=== PATIENT | male | born 1945 | race Caucasian/White ===

== ENCOUNTER 2016-09-24 07:12 | Day surgery (SDC) | payer MEDICARE, BC ==
[2016-09-24] MEDS ORDERED: Lactated Ringers 1,000 ML IV SCH (07:15)
[2016-09-24] MEDS ORDERED: Sodium Chloride 0.9% 10 ML Syringe FLUSH PRN (07:15)
[2016-09-24] MEDS ORDERED: ceFAZolin 1 GM Vial IV ONE (09:00)
[2016-09-24] MEDS ORDERED: Lidocaine 2% 100 MG/5 ML Syringe IVPUSH ONE (09:00)
[2016-09-24] MEDS ORDERED: Propofol 200 MG/20 ML SDV IV ONE (09:00)
[2016-09-24] MEDS ORDERED: fentaNYL 100 MCG/2 ML SDV IV ONE (09:00)
[2016-09-24] MEDS ORDERED: Midazolam 1 MG/ML 2 ML SDV IV ONE (09:00)
[2016-09-24] MEDS ORDERED: Ondansetron 4 MG/2 ML SDV IVPUSH ONE (09:00)
[2016-09-24] MEDS ORDERED: Bupivacaine 0.5% 30 ML SDV ONE (09:01)
[2016-09-24] MEDS ORDERED: Lidocaine 1% with EPINEPHrine 1:100,000 20 ML MDV ONE (09:01)
[2016-09-24] MEDS ORDERED: Acetaminophen/HYDROcodone 325-5 MG Tab PO PRN (09:57)
--- NOTE | 2016-09-24 10:04 | PCM.OPNOTE ---
- General Post-Op/Procedure Note Date of Surgery/Procedure: 09/24/16 Operative Procedure(s): exicison of scalp biopsy site basal cell ca Findings: specimen with 5 mm margins Pre Op Diagnosis: basal cell ca of scalp Post-Op Diagnosis: Same Anesthesia Technique: Local (5 ml 1 % lido with epi/0.5% marcaine), MAC Primary Surgeon: Oz Perea Anesthesia Provider: Yu Ty Pathology: skin Complications: None Condition: Good Free Text/Narrative:: see dictation [id number]
[2016-09-24 11:21] VITALS: BP 149/73
--- NOTE | 2016-09-24 15:29 | OR ---
DATE OF OPERATION: 09/24/2016 SURGEON: Oz Perea MD PROCEDURE PERFORMED: Re-excision of scalp lesion with flap closure. PREOPERATIVE DIAGNOSIS: Basal cell carcinoma of the scalp. POSTOPERATIVE DIAGNOSIS: Basal cell carcinoma of the scalp. INDICATIONS FOR PROCEDURE: This is a 71-year-old white male, who has had previous excision of a scalp lesion. Margins were positive. The diagnosis was basal cell carcinoma. The patient was referred for re-excision of the biopsy site. DESCRIPTION OF OPERATION: After an excellent IV sedation was administered, the patient was prepped and draped in the usual sterile manner. The area after marking out a 5-mm border around the previous scar was infiltrated with a 1:1 mixture of 1% lidocaine and 0.5% bupivacaine. The specimen was excised and passed off the field after marking superior and inferior margins. It was readily apparent that we were not going to be able to get the scalp closed with simple closure. We marked out a modified rhomboid flap, and the flap was incised. It was very difficult to get the flap to rotate despite raising and loosening the skin circumferentially around this area. We were able to approximate the skin with interrupted 0 Ethibond, and jose m were then placed in between to get the scalp closed. The area was dressed with bacitracin, Kerlix, as well as well as stocking. He was taken to recovery room in good condition. Estimated blood loss was approximately 3 mL. /[id number] /BRIANL
== END 2016-09-24 11:15 | disposition home or self-care (01) ==
LOC: FB.SDS 07:12
PROVIDERS: ATTEND Surgery
DX: C44.41 Basal cell carcinoma of skin of scalp and neck (principal); I10 Essential (primary) hypertension; Z79.899 Other long term (current) drug therapy; Z96.652 Presence of left artificial knee joint; Z79.82 Long term (current) use of aspirin
CPT/HCPCS: 00300; 11623; 88305; J0690; J2250; J2405; J2704; J3010; J7120

== ENCOUNTER 2020-11-13 03:24 | Inpatient (IN) | payer MEDICARE, BC ==
[2020-11-13] MEDS ORDERED: HYDROmorphone 2 MG/ML SDV IM ONE (04:42)
[2020-11-13] MEDS ORDERED: oxyCODONE 5 MG Tab PO PRN (04:46)
--- NOTE | 2020-11-13 04:54 | EDM.PDOC ---
ED HPI GENERAL MEDICAL PROBLEM - General Chief Complaint: Back Pain or Injury Stated Complaint: BACK PAIN Time Seen by Provider: 11/13/20 04:49 Source of Information: Reports: Patient History Limitations: Reports: No Limitations - History of Present Illness INITIAL COMMENTS - FREE TEXT/NARRATIVE: Jorge Luis complains of severe back pain,inability to ambulate. His symptoms have been progressively getting worse since ..Saw Neurosurgery yesterday,waiting on a DEXA scan. Surgery has been entertained,but attended with various risks due to age,co-morbidities.Nothing is helping pain.ADLs have become difficult. Family unable to take care of him. 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 Lower back/buttocks Pain Score (Numeric/FACES): 10 - Related Data Allergies Allergy/AdvReac Type Severity Reaction Status Date / Time No Known Allergies Allergy Verified 11/13/20 03:33 Home Meds: Home Meds Allopurinol [Zyloprim] 300 mg PO ASDIRECTED PRN 09/23/16 [History] Carboxymethylcellulose Sodium [Refresh Tears] 1 drop EYEBOTH Q4HR PRN 09/23/16 [History] Hydrochlorothiazide/Lisinopril [Lisinopril-HCTZ 20-25 MG] 1 tab PO DAILY 09/23/16 [History] prednisoLONE acetate [Pred Forte 1% Ophth Susp] 1 drop EYEBOTH DAILY 09/23/16 [History] cycloSPORINE [Restasis] 1 ea EYEBOTH BID 09/24/16 [History] Aspirin 81 mg PO BID 11/13/20 [History] Brimonidine Tartrate/Timolol [Combigan Eye Drops] 1 drop EYEBOTH BID 11/13/20 [History] Metoprolol Tartrate 50 mg PO BID 11/13/20 [History] Naproxen [Naprosyn] 500 mg PO BID 11/13/20 [History] Netarsudil Mesylat/Latanoprost [Rocklatan 0.02%-0.005% Eye Drp] 1 drop EYERT DAILY 11/13/20 [History] Vit A/Vit C/Vit E/Zinc/Copper [Preservision] 1 each PO BID 11/13/20 [History] atorvaSTATin [Lipitor] 10 mg PO DAILY 11/13/20 [History] metFORMIN [Glucophage] 1,000 mg PO BIDMEALS 11/13/20 [History] Past Medical History HEENT History: Reports: Cataract, Other (See Below) Other HEENT History: BILATERAL CATARACT SURGERY ET ALSO BILATERAL CORNEAL TRANSPLANT. Cardiovascular History: Reports: High Cholesterol, Hypertension Respiratory History: Reports: None Gastrointestinal History: Reports: Hemorrhoids Other Genitourinary History: PHIMOSIS Musculoskeletal History: Reports: Arthritis, Back Pain, Chronic, Gout, Osteoarthritis Psychiatric History: Reports: None Endocrine/Metabolic History: Reports: Diabetes, Type II, Obesity/BMI 30+ Hematologic History: Reports: None Immunologic History: Reports: None Oncologic (Cancer) History: Reports: Basal Cell Carcinoma Other Dermatologic History: BASAL TRUONG CA OF HEAD LESION - Infectious Disease History Infectious Disease History: Reports: Chicken Pox, Measles, Mumps, Pertussis (Whooping Cough) - Past Surgical History Head Surgeries/Procedures: Reports: None HEENT Surgical History: Reports: Cataract Surgery, Eye Surgery Other HEENT Surgeries/Procedures: CORNEAL TRANSPLANT bilat, bilat cataract surgery GI Surgical History: Reports: Colonoscopy, Hernia Repair/Other, Other (See Below) Other GI Surgeries/Procedures: LEFT INGUINAL HERNIORRAPHY, hemorrhoid surgery, repair of anal fissure Male Surgical History: Reports: Circumcision Musculoskeletal Surgical History: Reports: Knee Replacement Other Musculoskeletal Surgeries/Procedures:: bilat knee replacements Dermatological Surgical History: Reports: Skin Biopsy Social & Family History - Family History Family Medical History: No Pertinent Family History - Tobacco Use Tobacco Use Status *Q: Never Tobacco User - Caffeine Use Caffeine Use: Reports: Coffee - Recreational Drug Use Recreational Drug Use: No ED ROS GENERAL - Review of Systems Review Of Systems: Comprehensive ROS is negative, except as noted in HPI. ED EXAM,LOWER BACK PAIN/INJURY - Physical Exam Exam: See Below Exam Limited By: No Limitations General Appearance: Alert, WD/WN, No Apparent Distress Extremities: Normal Inspection, Pedal Edema Neurological: Alert, Oriented x 3 Psychiatric: Normal Affect Course - Vital Signs Last Recorded V/S: Last Vital Signs Temp 97.9 F 11/13/20 03:25 Pulse 77 11/13/20 03:25 Resp 20 11/13/20 03:25 BP 196/90 H 11/13/20 03:25 Pulse Ox 100 11/13/20 03:25 - Orders/Labs/Meds Orders: Active Orders 24 hr Category Date Time Status Patient Status [ADT] Routine ADT 11/13/20 04:46 Active Oxygen Therapy [RC] PRN Care 11/13/20 04:46 Active Up With Assistance [RC] ASDIRECTED Care 11/13/20 04:46 Active VTE/DVT Education [RC] Per Unit Routine Care 11/13/20 04:46 Active Vital Signs [RC] Q4H Care 11/13/20 04:46 Active OT Evaluation and Treatment [CONS] Routine Cons 11/13/20 04:46 Active PT Evaluation and Treatment [CONS] Routine Cons 11/13/20 04:46 Active CORONAVIRUS COVID-19 [facility] [[facility]] Urgent Lab 11/13/20 04:48 Ordered Sodium Chloride 0.9% [Saline Flush] Med 11/13/20 04:46 Active 10 ml FLUSH ASDIRECTED PRN oxyCODONE Med 11/13/20 04:46 Active 5 mg PO Q4H PRN Peripheral IV Insertion Adult [OM.PC] Routine Oth 11/13/20 04:46 Ordered Resuscitation Status Routine Resus Stat 11/13/20 04:46 Ordered Medication Orders Oxycodone HCl (Oxycodone 5 Mg Tab) 5 mg PO Q4H PRN PRN Reason: Pain (moderate 4-6) Sodium Chloride (Sodium Chloride 0.9% 10 Ml Syringe) 10 ml FLUSH ASDIRECTED PRN PRN Reason: Keep Vein Open Labs: Laboratory Tests 11/13/20 11/13/20 11/13/20 Range/Units 04:05 04:05 04:05 WBC 7.1 (3.2-10.1) x10-3/uL RBC 3.96 (3.90-5.90) x10(6)uL Hgb 12.5 L (12.9-17.7) g/dL Hct 38.1 L (38.3-50.1) % MCV 96.1 (80.8-98.7) fL MCH 31.6 (27.0-33.3) pg MCHC 32.9 (28.7-35.3) g/dL RDW 14.3 (12.4-15.0) % Plt Count 219 (117-477) x10(3)uL MPV 6.6 L (6.7-11.0) fL Neut % (Auto) 73.2 H (40.3-71.8) % Lymph % (Auto) 12.9 L (15.8-45.3) % Falls % (Auto) 9.6 (5.5-15.2) % Eos % (Auto) 3.8 (0.1-6.8) % Baso % (Auto) 0.5 (0.3-3.8) % Neut # (Auto) 5.2 (1.7-6.9) x10-3/uL Lymph # (Auto) 0.9 (0.5-4.5) x10-3/uL Falls # (Auto) 0.7 (0.0-1.2) x10-3/uL Eos # (Auto) 0.3 (0.0-0.6) x10-3/uL Baso # (Auto) 0.0 (0.0-0.3) x10-3/uL Sodium 143 (135-145) mmol/L Potassium 4.0 (3.5-5.3) mmol/L Chloride 102 (100-110) mmol/L Carbon Dioxide 27 (21-32) mmol/L BUN 17 (7-18) mg/dL Creatinine 1.1 (0.70-1.30) mg/dL Est Cr Clr Drug Dosing 58.99 mL/min Estimated GFR (MDRD) > 60 (>60) BUN/Creatinine Ratio 15.5 (9-20) Glucose 167 H (80-116) mg/dL Calcium 8.4 L (8.6-10.2) mg/dL Total Bilirubin 0.6 (0.1-1.3) mg/dL AST 43 H (5-25) IU/L ALT 28 (12-36) U/L Alkaline Phosphatase 88 (56-112) IU/L NT-Pro-B Natriuret Pep 172 (<=450) pg/mL Total Protein 7.3 (6.0-8.0) g/dL Albumin 3.7 (3.2-4.6) g/dL Globulin 3.6 g/dL Albumin/Globulin Ratio 1.0 Meds: Medications Generic Name Dose Route Start Last Admin Trade Name Freq PRN Reason Stop Dose Admin Oxycodone HCl 5 mg 11/13/20 04:46 Oxycodone 5 Mg Tab PO Q4H PRN Pain (moderate 4-6) Sodium Chloride 10 ml 05/06/21 04:46 Sodium Chloride 0.9% 10 Ml Syringe FLUSH ASDIRECTED PRN Keep Vein Open Discontinued Medications Generic Name Dose Route Start Last Admin Trade Name Suzan PRN Reason Stop Dose Admin Hydromorphone HCl 1 mg 11/13/20 04:42 Hydromorphone 2 Mg/Ml Sdv IM 11/13/20 04:43 ONETIME ONE Departure - Departure Time of Disposition: 04:51 Disposition: Refer to Observation Condition: Good Clinical Impression: Chronic radicular low back pain, Sciatica - Discharge Information Sepsis Event Note (ED) - Evaluation Sepsis Screening Result: No Definite Risk - Focused Exam Vital Signs: Vital Signs Temp Pulse Resp BP Pulse Ox 11/13/20 03:25 97.9 F 77 20 196/90 H 100 - Problem List & Annotations (1) Chronic radicular low back pain SNOMED Code(s): 97453033, 58469532 Code(s): M54.16 - RADICULOPATHY, LUMBAR REGION; G89.29 - OTHER CHRONIC PAIN Status: Acute Current Visit: Yes (2) HTN (hypertension) SNOMED Code(s): 38770391 Code(s): I10 - ESSENTIAL (PRIMARY) HYPERTENSION Status: Acute Current Visit: Yes Qualifiers: Hypertension type: essential hypertension Qualified Code(s): I10 - Essential (primary) hypertension (3) Obesity SNOMED Code(s): 362284894, 677392079 Code(s): E66.9 - OBESITY, UNSPECIFIED Status: Acute Current Visit: Yes Qualifiers: Obesity type: due to excess calories (4) Ambulatory dysfunction SNOMED Code(s): 340539760 Code(s): R26.2 - DIFFICULTY IN WALKING, NOT ELSEWHERE CLASSIFIED Status: Acute Current Visit: Yes - Problem List Review Problem List Initiated/Reviewed/Updated: Yes - My Orders Last 24 Hours: My Active Orders 11/13/20 04:46 Patient Status [ADT] Routine Oxygen Therapy [RC] PRN Up With Assistance [RC] ASDIRECTED VTE/DVT Education [RC] Per Unit Routine Vital Signs [RC] Q4H OT Evaluation and Treatment [CONS] Routine PT Evaluation and Treatment [CONS] Routine Sodium Chloride 0.9% [Saline Flush] 10 ml FLUSH ASDIRECTED PRN oxyCODONE 5 mg PO Q4H PRN Peripheral IV Insertion Adult [OM.PC] Routine Resuscitation Status Routine 11/13/20 04:48 CORONAVIRUS COVID-19 [facility] [MOLE[facility]] Urgent - Assessment/Plan Last 24 Hours: My Active Orders 11/13/20 04:46 Patient Status [ADT] Routine Oxygen Therapy [RC] PRN Up With Assistance [RC] ASDIRECTED VTE/DVT Education [RC] Per Unit Routine Vital Signs [RC] Q4H OT Evaluation and Treatment [CONS] Routine PT Evaluation and Treatment [CONS] Routine Sodium Chloride 0.9% [Saline Flush] 10 ml FLUSH ASDIRECTED PRN oxyCODONE 5 mg PO Q4H PRN Peripheral IV Insertion Adult [OM.PC] Routine Resuscitation Status Routine 11/13/20 04:48 CORONAVIRUS COVID-19 [facility] [MOLEC] Urgent Plan: Admit for pain control,BP control( BP 196 systolic x 2). PT. Obtain DEXA.
[2020-11-13] MEDS ORDERED: Labetalol 20 MG/4 ML Syringe IVPUSH ONE (04:56)
[2020-11-13] MEDS: Sodium Chloride 0.9% 10 ML Syringe FLUSH PRN ×2 (05:25→18:31)
[2020-11-13] MEDS ORDERED: cefTRIAXone 2 GM in Sodium Chloride 0.9% 50 ML IV SCH (09:30)
[2020-11-13] MEDS ORDERED: cefTRIAXone 2 GM Vial IV SCH (09:45)
[2020-11-13] MEDS: cefTRIAXone 2 GM Vial IVPUSH SCH (10:07)
[2020-11-13] MEDS: Cyclobenzaprine 10 MG Tab PO SCH ×2 (10:07→21:33)
[2020-11-13] MEDS: Clindamycin in 0.9 % Sod Chlor 600 MG in Premix Bag 1 BAG IV SCH ×4 (10:08→17:52)
--- NOTE | 2020-11-13 12:41 | HP ---
ADMISSION DATE: 11/13/2020 REASON FOR ADMISSION: Complicated back pain. HISTORY OF PRESENT ILLNESS: Jorge Luis Hernandez is a 75-year-old male who was admitted through [facility]. Provider of record, Dr. Brice Belle. Presented with complicated severe and disabling back pain, off and on, couple months duration. Has had active intervention with physical therapy at [facility], more recently [facility]. Benefits inadequate. Had been seen by the Pain [facility] and undergone a single injection. Re-seen recently, day prior to admission. Neurosurgery outlined options, implications, concerns, risks and benefits and the enormity of intervention. Pain has been disabling, caregiving opportunity problematic. OTC medications noted. DAILY MEDICATIONS: Include: 1. Allopurinol 300 mg 1 p.o. daily, gout. 2. Baby aspirin 81 mg, CAD prevention. 3. Atorvastatin 10 mg 1 p.o. daily, hyperlipidemia. 4. Lisinopril-hydrochlorothiazide 20-25 one p.o. daily, blood pressure. 5. Metformin 1000 mg b.i.d., NIDDM. 6. Metoprolol 50 mg 1 p.o. b.i.d., hypertension and CAD. 7. Naproxen sodium 500 mg 1 p.o. b.i.d., back pain. 8. Prednisolone acetate Pred-Forte 1 drop both eyes, eye disease. 9. Multivitamin. ALLERGIES: No known allergies. PAST MEDICAL HISTORY: Significant for bilateral total knee arthroplasties, corneal transplants. Has had no major operative procedures. Treating illnesses include hyperlipidemia, diabetes mellitus, and hypertension. No other operative procedures, hospitalizations, unusual childhood diseases, major injuries, or fractures. SOCIAL HISTORY: Happily , lives in [facility]. in good health. Four children. 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 Nonsmoker. No alcohol. No illicit drug use. FAMILY HISTORY: Negative for early heart disease, diabetes mellitus, or inheritable cancer. REVIEW OF SYSTEMS: CONSTITUTIONAL: Feeling generally well except for back pain. EYES: Sees well, but moderate. EARS: Difficulty in crowds. OROPHARYNX: Intact dentition. GI: Regular predictable stools. : Good voiding pattern. Nocturia x1. No blood in urine. CV: Denies chest pain, palpitations, or syncope. RESPIRATORY: No chronic cough, wheeze, or congestion. ORTHOPEDIC: General joint complaints. SKIN: No lesions, eruptions, or moles. ENDOCRINE: Diabetes on board. PSYCHIATRIC: Mood stable. PHYSICAL EXAMINATION: VITAL SIGNS: 36.4, pulse is 74, 163/75, 16, 98%. GENERAL: Middle-aged gentleman, cooperative, conversant. Gives good history. HEENT: Funduscopic benign. Conjunctivae clear. Bright tympanic membranes. Decreased hearing. Clear nasal discharge. Mouth and oropharynx clear. Fair dentition. Tongue midline. NECK: Benign. Thyroid small. No carotid bruits. CHEST: On auscultation, clear in all lung cabrera. HEART: On auscultation, no ectopy or murmur. ABDOMEN: Benign. No surgical scars. No hepatosplenomegaly. : Declined. RECTAL: Declined. EXTREMITIES: Well perfused. TKA. Surgical scars intact. Has an evolving cellulitis of his right lower extremity, new finding. With open eschars. Otherwise, well perfused. LABORATORY STUDIES: White count 7100, hemoglobin 12.5, hematocrit 38.3, normal indices. Electrolytes satisfactory. Glucose 167. COVID negative. Radiographs, none recent. ASSESSMENT: 1. Complicated back pain, surgical consideration. 2. Cellulitis, right lower extremity. 3. Yst-tdbjhpo-ppvvntkxf diabetes mellitus. 4. Hypertension. 5. Diabetes mellitus. 6. Total knee arthroplasty x2. 7. Corneal transplants. PLAN: Medications, care, and treatment. PT, OT will be involved. Treatment of his cellulitis complementary. DEXA scan to be performed and care appropriate. /[id number] LUDWIG/RADHA
--- NOTE | 2020-11-13 13:22 | HP ---
ADMISSION DATE: 11/13/2020 ADDENDUM: Jorge Luis noted ulcer was present on his right upper buttocks area. Adaptic dressing was placed and will be observant for care. /[id number] LUDWIG/RADHA
[2020-11-13] MEDS ORDERED: metFORMIN 1,000 MG Tab PO SCH (18:00)
[2020-11-13] MEDS: Aspirin 81 MG Tab.Chew PO SCH (22:33)
[2020-11-13] MEDS: atorvaSTATin 10 MG Tab PO SCH (22:33)
[2020-11-13] MEDS ORDERED: metFORMIN 1,000 MG Tab PO ONE (23:00)
[2020-11-14] MEDS: Clindamycin in 0.9 % Sod Chlor 600 MG in Premix Bag 1 BAG IV SCH ×6 (02:15→17:24)
[2020-11-14] MEDS: Acetaminophen/oxyCODONE 325-5 MG Tab PO PRN ×2 (07:36→20:06)
--- NOTE | 2020-11-14 08:56 | PCM.PN ---
- General Info Date of Service: 11/14/20 Subjective Update: Jorge Luis still has pain on movement,lower back.Not able to ambulate. Redness and swelling of legs present still,no systemic symptoms. Functional Status: Reports: Pain Controlled - Review of Systems General: Reports: No Symptoms. Denies: Fever Pulmonary: Reports: No Symptoms Cardiovascular: Reports: No Symptoms - Patient Data Vitals - Most Recent: Last Vital Signs Temp 97.8 F 11/14/20 02:50 Pulse 78 11/14/20 02:50 Resp 20 11/14/20 02:50 BP 145/78 H 11/14/20 02:50 Pulse Ox 95 11/14/20 03:00 Weight - Most Recent: 119.38 kg Lab Results Last 24 Hours: Laboratory Results - last 24 hr 11/13/20 11/14/20 Range/Units 22:31 06:39 POC Glucose 141 H 121 H (80-116) mg/dL Med Orders - Current: Current Medications Allopurinol (Allopurinol 300 Mg Tab) 300 mg PO DAILY [facility] Aspirin (Aspirin 81 Mg Tab.Chew) 81 mg PO BID [facility] Last Admin: 11/13/20 22:33 Dose: Not Given Documented by: Atorvastatin Calcium (Atorvastatin 10 Mg Tab) 10 mg PO BEDTIME [facility] Last Admin: 11/13/20 22:33 Dose: Not Given Documented by: Ceftriaxone Sodium (Ceftriaxone 2 Gm Vial) 2 gm IVPUSH Q24H [facility] Stop: 11/19/20 09:46 Last Admin: 11/13/20 10:07 Dose: 2 gm Documented by: Cyclobenzaprine HCl (Cyclobenzaprine 10 Mg Tab) 10 mg PO BID [facility] Last Admin: 11/13/20 21:33 Dose: 10 mg Documented by: Clindamycin/Sodium Chloride (600 mg/ Premix) 50 mls @ 150 mls/hr IV Q8H [facility] Stop: 11/19/20 23:59 Last Admin: 11/14/20 02:15 Dose: 150 mls/hr Documented by: Metformin HCl (Metformin 1,000 Mg Tab) 1,000 mg PO BIDMEALS [facility] Metoprolol Tartrate (Metoprolol Tartrate 50 Mg Tab) 50 mg PO BID [facility] Non-Formulary Medication (Cyclosporine [Restasis]) 1 ea EYEBOTH BID [facility] (Netarsudil/Latanoprost) [ Rocklatan 0.02%-0. 005% Eye Drops *Ptom 1 drop EYERT BEDTIME [facility] Non-Formulary Medication (Prednisolone Acetate [Pred Forte 1% Ophth Susp]) 1 drop EYEBOTH BEDTIME [facility] Oxycodone/Acetaminophen (Acetaminophen/Oxycodone 325-5 Mg Tab) 2 tab PO Q6H PRN PRN Reason: BACK PAIN Last Admin: 11/14/20 07:36 Dose: 2 tab Documented by: Sodium Chloride (Sodium Chloride 0.9% 10 Ml Syringe) 10 ml FLUSH ASDIRECTED PRN PRN Reason: Keep Vein Open Last Admin: 11/13/20 18:31 Dose: 10 ml Documented by: Discontinued Medications Hydromorphone HCl (Hydromorphone 2 Mg/Ml Sdv) 1 mg IM ONETIME ONE Stop: 11/13/20 04:43 Last Admin: 11/13/20 04:55 Dose: 1 mg Documented by: Labetalol HCl (Labetalol 20 Mg/4 Ml Syringe) 10 mg IVPUSH ONETIME ONE; Protocol Stop: 11/13/20 04:57 Last Admin: 11/13/20 06:47 Dose: Not Given Documented by: Metformin HCl (Metformin 1,000 Mg Tab) 1,000 mg PO BIDMEALS SURES[facility] Last Admin: 11/14/20 00:11 Dose: Not Given Documented by: Metformin HCl (Metformin 1,000 Mg Tab) 1,000 mg PO NOW ONE Stop: 11/13/20 23:01 Last Admin: 11/13/20 22:59 Dose: 1,000 mg Documented by: Oxycodone HCl (Oxycodone 5 Mg Tab) 5 mg PO Q4H PRN PRN Reason: Pain (moderate 4-6) Last Admin: 11/13/20 06:29 Dose: 5 mg Documented by: - Exam General: Alert, Oriented Neck: Supple Back Exam: CVA Tenderness (R), Decreased Range of Motion, Muscle Spasm Extremities: Normal Inspection Skin: Warm, Rash, Other (Red right lower extremity) Neurological: No New Focal Deficit, Strength Equal Bilateral. No: Normal Gait Psy/Mental Status: Alert - Patient Data Lab Results Last 24 hrs: Laboratory Results - last 24 hr 11/13/20 11/14/20 Range/Units 22:31 06:39 POC Glucose 141 H 121 H (80-116) mg/dL Result Diagrams: 11/13/20 04:05 11/13/20 04:05 Sepsis Event Note - Evaluation Sepsis Screening Result: No Definite Risk - Focused Exam Vital Signs: Vital Signs Temp Pulse Resp BP Pulse Ox Pulse Ox 11/14/20 03:00 95 11/14/20 02:50 97.8 F 78 20 145/78 H 95 11/13/20 22:00 98.1 F 89 20 167/79 H 96 - Problem List & Annotations (1) Chronic radicular low back pain SNOMED Code(s): 08740477, 69887738 Code(s): M54.16 - RADICULOPATHY, LUMBAR REGION; G89.29 - OTHER CHRONIC PAIN Status: Acute Current Visit: Yes (2) HTN (hypertension) SNOMED Code(s): 95632530 Code(s): I10 - ESSENTIAL (PRIMARY) HYPERTENSION Status: Acute Current Visit: Yes Qualifiers: Hypertension type: essential hypertension Qualified Code(s): I10 - Essential (primary) hypertension (3) Obesity SNOMED Code(s): 146372186, 017160046 Code(s): E66.9 - OBESITY, UNSPECIFIED Status: Acute Current Visit: Yes Qualifiers: Obesity type: due to excess calories (4) Ambulatory dysfunction SNOMED Code(s): 111348191 Code(s): R26.2 - DIFFICULTY IN WALKING, NOT ELSEWHERE CLASSIFIED Status: Acute Current Visit: Yes (5) Cellulitis SNOMED Code(s): 853924937 Code(s): L03.90 - CELLULITIS, UNSPECIFIED Status: Acute Current Visit: Yes Qualifiers: Site of cellulitis: extremity Site of cellulitis of extremity: lower extremity Laterality: unspecified laterality Qualified Code(s): L03.119 - Cellulitis of unspecified part of limb - Problem List Review Problem List Initiated/Reviewed/Updated: Yes - My Orders Last 24 Hours: My Active Orders 11/15/20 05:11 BASIC METABOLIC PANEL,BMP [CHEM] AM CBC WITH AUTO DIFF [HEME] AM CRP [C-REACTIVE PROTEIN] [CHEM] AM - Plan Plan:: He will have his DEXA scheduled for next week. For now,treat cellulitis with parenteral abx,and Pain control,add muscle relaxant
[2020-11-14] MEDS: metFORMIN 1,000 MG Tab PO SCH ×2 (09:08→17:29)
[2020-11-14] MEDS: Allopurinol 300 MG Tab PO SCH (09:08)
[2020-11-14] MEDS: Metoprolol Tartrate 50 MG Tab PO SCH ×2 (09:09→20:05)
[2020-11-14] MEDS: Aspirin 81 MG Tab.Chew PO SCH ×2 (09:09→20:00)
[2020-11-14] MEDS: COMBIGAN EYE EYEBOTH SCH ×2 (09:10→20:09)
[2020-11-14] MEDS: Cyclobenzaprine 10 MG Tab PO SCH ×2 (09:10→20:05)
[2020-11-14] MEDS: cycloSPORINE Ophth Drops U/D Box of 30 EYEBOTH SCH ×2 (09:12→20:10)
[2020-11-14] MEDS: Sodium Chloride 0.9% 10 ML Syringe FLUSH PRN ×2 (09:54→17:26)
[2020-11-14] MEDS: cefTRIAXone 2 GM Vial IVPUSH SCH (09:54)
[2020-11-14] MEDS: atorvaSTATin 10 MG Tab PO SCH ×2 (20:05→20:14)
[2020-11-14] MEDS: Latanoprost 0.005% Ophth Soln 2.5 ML Bottle EYELF SCH (20:06)
[2020-11-14] MEDS: prednisoLONE Acetate 1% Ophth Susp 5 ML Bottle EYEBOTH SCH (20:07)
[2020-11-14] MEDS ORDERED: LUMIGAN 0.01% EYELF SCH (21:00)
[2020-11-14] MEDS ORDERED: EYE EYELF SCH (21:00)
[2020-11-15] MEDS: Clindamycin in 0.9 % Sod Chlor 600 MG in Premix Bag 1 BAG IV SCH ×6 (01:52→17:09)
[2020-11-15] MEDS: cycloSPORINE Ophth Drops U/D Box of 30 EYEBOTH SCH ×2 (08:26→20:15)
[2020-11-15] MEDS: Aspirin 81 MG Tab.Chew PO SCH ×2 (08:28→20:14)
[2020-11-15] MEDS: metFORMIN 1,000 MG Tab PO SCH ×2 (08:28→17:05)
[2020-11-15] MEDS: Allopurinol 300 MG Tab PO SCH (08:29)
[2020-11-15] MEDS: Cyclobenzaprine 10 MG Tab PO SCH ×2 (08:29→20:14)
[2020-11-15] MEDS: Metoprolol Tartrate 50 MG Tab PO SCH ×2 (08:29→20:14)
[2020-11-15] MEDS: COMBIGAN EYE EYEBOTH SCH ×2 (08:30→20:16)
--- NOTE | 2020-11-15 08:35 | PCM.PN ---
- General Info Date of Service: 11/15/20 Subjective Update: Jorge Luis still has pain on movement,lower back.Not able to ambulate. Redness and swelling of legs present still,improved,and with no systemic symptoms. Functional Status: Reports: Pain Controlled, Tolerating Diet - Review of Systems General: Reports: No Symptoms HEENT: Reports: No Symptoms Pulmonary: Reports: No Symptoms - Patient Data Vitals - Most Recent: Last Vital Signs Temp 98.4 F 11/15/20 01:48 Pulse 89 11/15/20 08:29 Resp 16 11/15/20 01:48 BP 157/84 H 11/15/20 08:29 Pulse Ox 94 L 11/15/20 01:48 Weight - Most Recent: 119.38 kg I&O - Last 24 Hours: Intake & Output 11/14/20 11/15/20 11/15/20 22:59 06:59 14:59 Intake Total 650 Output Total 175 Balance 475 Lab Results Last 24 Hours: Laboratory Results - last 24 hr 11/14/20 11/14/20 11/15/20 Range/Units 11:23 17:08 06:10 WBC 4.5 (3.2-10.1) x10-3/uL RBC 3.44 L (3.90-5.90) x10(6)uL Hgb 11.2 L (12.9-17.7) g/dL Hct 33.1 L (38.3-50.1) % MCV 96.4 (80.8-98.7) fL MCH 32.5 (27.0-33.3) pg MCHC 33.7 (28.7-35.3) g/dL RDW 14.2 (12.4-15.0) % Plt Count 192 (117-477) x10(3)uL MPV 7.2 (6.7-11.0) fL Neut % (Auto) 57.3 (40.3-71.8) % Lymph % (Auto) 23.3 (15.8-45.3) % Martin % (Auto) 11.8 (5.5-15.2) % Eos % (Auto) 6.7 (0.1-6.8) % Baso % (Auto) 0.9 (0.3-3.8) % Neut # (Auto) 2.6 (1.7-6.9) x10-3/uL Lymph # (Auto) 1.0 (0.5-4.5) x10-3/uL Martin # (Auto) 0.5 (0.0-1.2) x10-3/uL Eos # (Auto) 0.3 (0.0-0.6) x10-3/uL Baso # (Auto) 0.0 (0.0-0.3) x10-3/uL Sodium (135-145) mmol/L Potassium (3.5-5.3) mmol/L Chloride (100-110) mmol/L Carbon Dioxide (21-32) mmol/L BUN (7-18) mg/dL Creatinine (0.70-1.30) mg/dL Est Cr Clr Drug Dosing mL/min Estimated GFR (MDRD) (>60) BUN/Creatinine Ratio (9-20) Glucose (80-116) mg/dL POC Glucose 151 H 146 H (80-116) mg/dL Calcium (8.6-10.2) mg/dL C-Reactive Protein (0.5-0.9) mg/dL 11/15/20 11/15/20 Range/Units 06:10 06:10 WBC (3.2-10.1) x10-3/uL RBC (3.90-5.90) x10(6)uL Hgb (12.9-17.7) g/dL Hct (38.3-50.1) % MCV (80.8-98.7) fL MCH (27.0-33.3) pg MCHC (28.7-35.3) g/dL RDW (12.4-15.0) % Plt Count (117-477) x10(3)uL MPV (6.7-11.0) fL Neut % (Auto) (40.3-71.8) % Lymph % (Auto) (15.8-45.3) % Martin % (Auto) (5.5-15.2) % Eos % (Auto) (0.1-6.8) % Baso % (Auto) (0.3-3.8) % Neut # (Auto) (1.7-6.9) x10-3/uL Lymph # (Auto) (0.5-4.5) x10-3/uL Martin # (Auto) (0.0-1.2) x10-3/uL Eos # (Auto) (0.0-0.6) x10-3/uL Baso # (Auto) (0.0-0.3) x10-3/uL Sodium 146 H (135-145) mmol/L Potassium 4.0 (3.5-5.3) mmol/L Chloride 108 D (100-110) mmol/L Carbon Dioxide 29 (21-32) mmol/L BUN 14 (7-18) mg/dL Creatinine 1.0 (0.70-1.30) mg/dL Est Cr Clr Drug Dosing 64.89 mL/min Estimated GFR (MDRD) > 60 (>60) BUN/Creatinine Ratio 14.0 (9-20) Glucose 116 (80-116) mg/dL POC Glucose (80-116) mg/dL Calcium 7.9 L (8.6-10.2) mg/dL C-Reactive Protein 1.1 H (0.5-0.9) mg/dL Med Orders - Current: Current Medications Allopurinol (Allopurinol 300 Mg Tab) 300 mg PO DAILY [facility] Last Admin: 11/15/20 08:29 Dose: 300 mg Documented by: Aspirin (Aspirin 81 Mg Tab.Chew) 81 mg PO BID [facility] Last Admin: 11/15/20 08:28 Dose: 81 mg Documented by: Atorvastatin Calcium (Atorvastatin 10 Mg Tab) 10 mg PO BEDTIME [facility] Last Admin: 11/14/20 20:14 Dose: Not Given Documented by: Ceftriaxone Sodium (Ceftriaxone 2 Gm Vial) 2 gm IVPUSH Q24H [facility] Stop: 11/19/20 09:46 Last Admin: 11/14/20 09:54 Dose: 2 gm Documented by: Cyclobenzaprine HCl (Cyclobenzaprine 10 Mg Tab) 10 mg PO BID [facility] Last Admin: 11/15/20 08:29 Dose: 10 mg Documented by: Cyclosporine (Cyclosporine Ophth Drops U/D Box Of 30) 1 each EYEBOTH BID [facility] Last Admin: 11/15/20 08:26 Dose: 1 drop Documented by: Clindamycin/Sodium Chloride (600 mg/ Premix) 50 mls @ 150 mls/hr IV Q8H [facility] Stop: 11/19/20 23:59 Last Admin: 11/15/20 01:52 Dose: 150 mls/hr Documented by: Latanoprost (Latanoprost 0.005% Ophth Soln 2.5 Ml Bottle) 0 ml EYELF BEDTIME [facility] Last Admin: 11/14/20 20:06 Dose: 1 drop Documented by: Metformin HCl (Metformin 1,000 Mg Tab) 1,000 mg PO BIDMEALS [facility] Last Admin: 11/15/20 08:28 Dose: 1,000 mg Documented by: Metoprolol Tartrate (Metoprolol Tartrate 50 Mg Tab) 50 mg PO BID [facility] Last Admin: 11/15/20 08:29 Dose: 50 mg Documented by: (Netarsudil/Latanoprost) [ Rocklatan 0.02%-0. 005% Eye Drops *Ptom 1 drop EYERT BEDTIME [facility] Last Admin: 11/14/20 20:08 Dose: 1 drop Documented by: Combigan Eye Drops * (Ptom) 0 each EYEBOTH BID [facility] Last Admin: 11/15/20 08:30 Dose: 1 each Documented by: Oxycodone/Acetaminophen (Acetaminophen/Oxycodone 325-5 Mg Tab) 2 tab PO Q6H PRN PRN Reason: BACK PAIN Last Admin: 11/14/20 20:06 Dose: 2 tab Documented by: Prednisolone Acetate (Prednisolone Acetate 1% Ophth Susp 5 Ml Bottle) 0 ml EYEBOTH BEDTIME [facility] Last Admin: 11/14/20 20:07 Dose: 1 drop Documented by: Sodium Chloride (Sodium Chloride 0.9% 10 Ml Syringe) 10 ml FLUSH ASDIRECTED PRN PRN Reason: Keep Vein Open Last Admin: 11/14/20 17:26 Dose: 10 ml Documented by: Discontinued Medications Hydromorphone HCl (Hydromorphone 2 Mg/Ml Sdv) 1 mg IM ONETIME ONE Stop: 11/13/20 04:43 Last Admin: 11/13/20 04:55 Dose: 1 mg Documented by: Labetalol HCl (Labetalol 20 Mg/4 Ml Syringe) 10 mg IVPUSH ONETIME ONE; Protocol Stop: 11/13/20 04:57 Last Admin: 11/13/20 06:47 Dose: Not Given Documented by: Metformin HCl (Metformin 1,000 Mg Tab) 1,000 mg PO BIDMEALS [facility] Last Admin: 11/14/20 00:11 Dose: Not Given Documented by: Metformin HCl (Metformin 1,000 Mg Tab) 1,000 mg PO NOW ONE Stop: 11/13/20 23:01 Last Admin: 11/13/20 22:59 Dose: 1,000 mg Documented by: Oxycodone HCl (Oxycodone 5 Mg Tab) 5 mg PO Q4H PRN PRN Reason: Pain (moderate 4-6) Last Admin: 11/13/20 06:29 Dose: 5 mg Documented by: - Exam General: Alert, Oriented HEENT: Pupils Equal Neck: Supple Lungs: Clear to Auscultation Extremities: Pedal Edema, Increased Warmth, Redness Skin: Warm Neurological: Strength Equal Bilateral, Sensation Intact. No: Normal Gait Psy/Mental Status: Alert - Patient Data Lab Results Last 24 hrs: Laboratory Results - last 24 hr 11/14/20 11/14/20 11/15/20 Range/Units 11:23 17:08 06:10 WBC 4.5 (3.2-10.1) x10-3/uL RBC 3.44 L (3.90-5.90) x10(6)uL Hgb 11.2 L (12.9-17.7) g/dL Hct 33.1 L (38.3-50.1) % MCV 96.4 (80.8-98.7) fL MCH 32.5 (27.0-33.3) pg MCHC 33.7 (28.7-35.3) g/dL RDW 14.2 (12.4-15.0) % Plt Count 192 (117-477) x10(3)uL MPV 7.2 (6.7-11.0) fL Neut % (Auto) 57.3 (40.3-71.8) % Lymph % (Auto) 23.3 (15.8-45.3) % Martin % (Auto) 11.8 (5.5-15.2) % Eos % (Auto) 6.7 (0.1-6.8) % Baso % (Auto) 0.9 (0.3-3.8) % Neut # (Auto) 2.6 (1.7-6.9) x10-3/uL Lymph # (Auto) 1.0 (0.5-4.5) x10-3/uL Martin # (Auto) 0.5 (0.0-1.2) x10-3/uL Eos # (Auto) 0.3 (0.0-0.6) x10-3/uL Baso # (Auto) 0.0 (0.0-0.3) x10-3/uL Sodium (135-145) mmol/L Potassium (3.5-5.3) mmol/L Chloride (100-110) mmol/L Carbon Dioxide (21-32) mmol/L BUN (7-18) mg/dL Creatinine (0.70-1.30) mg/dL Est Cr Clr Drug Dosing mL/min Estimated GFR (MDRD) (>60) BUN/Creatinine Ratio (9-20) Glucose (80-116) mg/dL POC Glucose 151 H 146 H (80-116) mg/dL Calcium (8.6-10.2) mg/dL C-Reactive Protein (0.5-0.9) mg/dL 11/15/20 11/15/20 Range/Units 06:10 06:10 WBC (3.2-10.1) x10-3/uL RBC (3.90-5.90) x10(6)uL Hgb (12.9-17.7) g/dL Hct (38.3-50.1) % MCV (80.8-98.7) fL MCH (27.0-33.3) pg MCHC (28.7-35.3) g/dL RDW (12.4-15.0) % Plt Count (117-477) x10(3)uL MPV (6.7-11.0) fL Neut % (Auto) (40.3-71.8) % Lymph % (Auto) (15.8-45.3) % Martin % (Auto) (5.5-15.2) % Eos % (Auto) (0.1-6.8) % Baso % (Auto) (0.3-3.8) % Neut # (Auto) (1.7-6.9) x10-3/uL Lymph # (Auto) (0.5-4.5) x10-3/uL Martin # (Auto) (0.0-1.2) x10-3/uL Eos # (Auto) (0.0-0.6) x10-3/uL Baso # (Auto) (0.0-0.3) x10-3/uL Sodium 146 H (135-145) mmol/L Potassium 4.0 (3.5-5.3) mmol/L Chloride 108 D (100-110) mmol/L Carbon Dioxide 29 (21-32) mmol/L BUN 14 (7-18) mg/dL Creatinine 1.0 (0.70-1.30) mg/dL Est Cr Clr Drug Dosing 64.89 mL/min Estimated GFR (MDRD) > 60 (>60) BUN/Creatinine Ratio 14.0 (9-20) Glucose 116 (80-116) mg/dL POC Glucose (80-116) mg/dL Calcium 7.9 L (8.6-10.2) mg/dL C-Reactive Protein 1.1 H (0.5-0.9) mg/dL Result Diagrams: 11/15/20 06:10 11/15/20 06:10 Sepsis Event Note - Evaluation Sepsis Screening Result: No Definite Risk - Focused Exam Vital Signs: Vital Signs Temp Pulse Pulse Resp BP BP Pulse Ox 11/15/20 08:29 89 157/84 H 11/15/20 01:48 98.4 F 69 16 136/62 94 L - Problem List & Annotations (1) Chronic radicular low back pain SNOMED Code(s): 05319268, 46594796 Code(s): M54.16 - RADICULOPATHY, LUMBAR REGION; G89.29 - OTHER CHRONIC PAIN Status: Acute Current Visit: Yes (2) HTN (hypertension) SNOMED Code(s): 78994410 Code(s): I10 - ESSENTIAL (PRIMARY) HYPERTENSION Status: Acute Current Visit: Yes Qualifiers: Hypertension type: essential hypertension Qualified Code(s): I10 - Essential (primary) hypertension (3) Obesity SNOMED Code(s): 800610707, 984137625 Code(s): E66.9 - OBESITY, UNSPECIFIED Status: Acute Current Visit: Yes Qualifiers: Obesity type: due to excess calories (4) Ambulatory dysfunction SNOMED Code(s): 630105438 Code(s): R26.2 - DIFFICULTY IN WALKING, NOT ELSEWHERE CLASSIFIED Status: Acute Current Visit: Yes (5) Cellulitis SNOMED Code(s): 995001930 Code(s): L03.90 - CELLULITIS, UNSPECIFIED Status: Acute Current Visit: Yes Qualifiers: Site of cellulitis: extremity Site of cellulitis of extremity: lower extremity Laterality: unspecified laterality Qualified Code(s): L03.119 - Cellulitis of unspecified part of limb - Problem List Review Problem List Initiated/Reviewed/Updated: Yes - My Orders Last 24 Hours: My Active Orders 11/14/20 09:00 Non-Formulary Medication [NF Drug] 0 each EYEBOTH BID 11/14/20 21:00 Latanoprost [Xalatan 0.005% Ophth Soln] 0 ml EYELF BEDTIME - Plan Plan:: He will have his DEXA scheduled for next week. For now,treat cellulitis with parenteral abx,and Pain control,add muscle relaxant.Continue PT
[2020-11-15] MEDS: Acetaminophen/oxyCODONE 325-5 MG Tab PO PRN ×2 (08:43→17:05)
[2020-11-15] MEDS: cefTRIAXone 2 GM Vial IVPUSH SCH (09:48)
[2020-11-15] MEDS: Sodium Chloride 0.9% 10 ML Syringe FLUSH PRN ×3 (09:48→17:11)
[2020-11-15] MEDS: atorvaSTATin 10 MG Tab PO SCH (20:14)
[2020-11-15] MEDS: Latanoprost 0.005% Ophth Soln 2.5 ML Bottle EYELF SCH (20:15)
[2020-11-15] MEDS: prednisoLONE Acetate 1% Ophth Susp 5 ML Bottle EYEBOTH SCH (20:15)
[2020-11-16] MEDS: Clindamycin in 0.9 % Sod Chlor 600 MG in Premix Bag 1 BAG IV SCH ×2 (01:53)
[2020-11-16 07:27] VITALS: BP 149/62; PULSE 75
[2020-11-16] MEDS: metFORMIN 1,000 MG Tab PO SCH (07:27)
[2020-11-16] MEDS: Metoprolol Tartrate 50 MG Tab PO SCH (08:43)
[2020-11-16] MEDS: Aspirin 81 MG Tab.Chew PO SCH (08:43)
[2020-11-16] MEDS: Allopurinol 300 MG Tab PO SCH (08:43)
[2020-11-16] MEDS: Cyclobenzaprine 10 MG Tab PO SCH (08:43)
[2020-11-16] MEDS: cycloSPORINE Ophth Drops U/D Box of 30 EYEBOTH SCH (08:46)
[2020-11-16] MEDS: COMBIGAN EYE EYEBOTH SCH (08:47)
--- NOTE | 2020-11-16 09:17 | PCM.DCSUM1 ---
Discharge Summary - Hospital Course Free Text/Narrative:: Patient's condition has improved but he will be transferred to swing bed today with continued current therapy. Patient will go to [place] tomorrow for DEXA scan. Further treatment recommendations based on current treatment efficacy and results of DEXA scan. - Discharge Data Discharge Date: 11/16/20 Discharge Disposition: DC/Tfer W/I Hosp To Swing 61 Condition: Good - Referral to Home Health Primary Care Physician: Elmer Tolentino MD - Discharge Diagnosis/Problem(s) (1) Sciatica SNOMED Code(s): 97509704 ICD Code: M54.30 - SCIATICA, UNSPECIFIED SIDE Status: Acute (2) HTN (hypertension) SNOMED Code(s): 44242842 ICD Code: I10 - ESSENTIAL (PRIMARY) HYPERTENSION Status: Acute Qualifiers: Hypertension type: essential hypertension Qualified Code(s): I10 - Essential (primary) hypertension (3) Obesity SNOMED Code(s): 355908316, 840024942 ICD Code: E66.9 - OBESITY, UNSPECIFIED Status: Acute Qualifiers: Obesity type: due to excess calories (4) Ambulatory dysfunction SNOMED Code(s): 478005125 ICD Code: R26.2 - DIFFICULTY IN WALKING, NOT ELSEWHERE CLASSIFIED Status: Acute (5) Cellulitis SNOMED Code(s): 973548972 ICD Code: L03.90 - CELLULITIS, UNSPECIFIED Status: Acute Qualifiers: Site of cellulitis: extremity Site of cellulitis of extremity: lower extremity Laterality: unspecified laterality Qualified Code(s): L03.119 - Cellulitis of unspecified part of limb - Patient Summary/Data Consults: Consultations 11/13/20 04:46 OT Evaluation and Treatment [CONS] Routine Please Evaluate and Treat. OT Reason for Consult: ADL's This query below is only for informational purposes and is not editable. PT Evaluation and Treatment [CONS] Routine Please Evaluate and Treat. PT Reason for Consult: Ambulation This query below is only for informational purposes and is not editable. 11/13/20 09:22 Consult to Occupational Therapy [OT Evaluation and Treatment] [CONS] Routine Please Evaluate and Treat. OT Reason for Consult: ABACK PAIN WEAKNESS This query below is only for informational purposes and is not editable. Admission Diagnosis/Problem: Back pain Consult to Physical Therapy [PT Evaluation and Treatment] [CONS] Routine Please Evaluate and Treat. PT Reason for Consult: BACK PAIN This query below is only for informational purposes and is not editable. Admission Diagnosis/Problem: Back pain - Discharge Plan *PRESCRIPTION DRUG MONITORING PROGRAM REVIEWED*: Not Applicable *COPY OF PRESCRIPTION DRUG MONITORING REPORT IN PATIENT MARY: Not Applicable Home Medications: Home Meds Brimonidine Tartrate/Timolol [Combigan Eye Drops] 1 drop EYEBOTH BID 11/13/20 [History] Vit A/Vit C/Vit E/Zinc/Copper [Preservision] 1 each PO BID 11/13/20 [History] Acetaminophen/oxyCODONE [Percocet 325-5 MG] 2 tab PO Q6H PRN tablet 11/16/20 [Rx] Aspirin 81 mg PO BID tab.chew 11/16/20 [Rx] Clindamycin in 0.9 % Sod Chlor [Cleocin in NS 600 MG/50 ML] 600 mg IV Q8H bag 11/16/20 [Rx] Cyclobenzaprine [Flexeril] 10 mg PO BID 11/16/20 [History] Cyclobenzaprine [Flexeril] 10 mg PO BID tablet 11/16/20 [Rx] Latanoprost [Xalatan 0.005% Ophth Soln] 0 ml EYELF BEDTIME bottle 11/16/20 [Rx] Metoprolol Tartrate [Lopressor] 50 mg PO BID tablet 11/16/20 [Rx] Netarsudil Mesylat/Latanoprost [Rocklatan 0.02%-0.005% Eye Drp] 1 drop EYERT BEDTIME 11/16/20 [Rx] Non-Formulary Medication [NF Drug] 0 each EYEBOTH BID each 11/16/20 [Rx] Sodium Chloride 0.9% [Saline Flush] 10 ml FLUSH ASDIRECTED PRN syringe 11/16/20 [Rx] allopurinoL [Zyloprim] 300 mg PO DAILY tablet 11/16/20 [Rx] atorvaSTATin [Lipitor] 10 mg PO BEDTIME tablet 11/16/20 [Rx] cefTRIAXone [Rocephin] 2 gm IVPUSH Q24H vial 11/16/20 [Rx] cycloSPORINE [Restasis] 1 each EYEBOTH BID each 11/16/20 [Rx] metFORMIN [Glucophage] 1,000 mg PO BIDMEALS tablet 11/16/20 [Rx] prednisoLONE acetate [Pred Forte 1% Ophth Susp] 0 ml EYEBOTH BEDTIME bottle 11/16/20 [Rx] Forms: ED Department Discharge Referrals: Elmer Tolentino MD [Primary Care Provider] - - Discharge Summary/Plan Comment DC Time >30 min.: No - General Info Date of Service: 11/16/20 Subjective Update: Patient was sitting in wheelchair next to bed at the time of exam. He states that he is feeling better but still has significant back pain when he tries to stand and ambulate. He has no new complaints at this time. Functional Status: Reports: Pain Controlled, Tolerating Diet, Ambulating, Urinating - Review of Systems General: Reports: Weakness HEENT: Reports: No Symptoms Pulmonary: Reports: No Symptoms Cardiovascular: Reports: No Symptoms Gastrointestinal: Reports: No Symptoms Genitourinary: Reports: No Symptoms Musculoskeletal: Reports: Back Pain, Leg Pain Skin: Reports: Other (Cellulitis) Neurological: Reports: Difficulty Walking, Weakness Psychiatric: Reports: No Symptoms - Patient Data Vitals - Most Recent: Last Vital Signs Temp 37.4 C 11/16/20 07:26 Pulse 75 11/16/20 08:43 Resp 18 11/16/20 07:26 BP 149/62 H 11/16/20 08:43 Pulse Ox 98 11/16/20 07:26 Weight - Most Recent: 119.38 kg I&O - Last 24 hours: Intake & Output 11/15/20 11/16/20 11/16/20 22:59 06:59 14:59 Intake Total 400 Output Total 1300 Balance -900 Lab Results - Last 24 hrs: Laboratory Results - last 24 hr 11/15/20 11/16/20 Range/Units 15:41 06:59 POC Glucose 102 123 H (80-116) mg/dL Med Orders - Current: Current Medications Discontinued Medications Allopurinol (Allopurinol 300 Mg Tab) 300 mg PO DAILY [facility] Last Admin: 11/16/20 08:43 Dose: 300 mg Documented by: Aspirin (Aspirin 81 Mg Tab.Chew) 81 mg PO BID [facility] Last Admin: 11/16/20 08:43 Dose: 81 mg Documented by: Atorvastatin Calcium (Atorvastatin 10 Mg Tab) 10 mg PO BEDTIME [facility] Last Admin: 11/15/20 20:14 Dose: 10 mg Documented by: Ceftriaxone Sodium (Ceftriaxone 2 Gm Vial) 2 gm IVPUSH Q24H [facility] Stop: 11/19/20 09:46 Last Admin: 11/15/20 09:48 Dose: 2 gm Documented by: Cyclobenzaprine HCl (Cyclobenzaprine 10 Mg Tab) 10 mg PO BID [facility] Last Admin: 11/16/20 08:43 Dose: 10 mg Documented by: Cyclosporine (Cyclosporine Ophth Drops U/D Box Of 30) 1 each EYEBOTH BID [facility] Last Admin: 11/16/20 08:46 Dose: 1 drop Documented by: Hydromorphone HCl (Hydromorphone 2 Mg/Ml Sdv) 1 mg IM ONETIME ONE Stop: 11/13/20 04:43 Last Admin: 11/13/20 04:55 Dose: 1 mg Documented by: Clindamycin/Sodium Chloride (600 mg/ Premix) 50 mls @ 150 mls/hr IV Q8H [facility] Stop: 11/19/20 23:59 Last Admin: 11/16/20 01:53 Dose: 150 mls/hr Documented by: Labetalol HCl (Labetalol 20 Mg/4 Ml Syringe) 10 mg IVPUSH ONETIME ONE; Protocol Stop: 11/13/20 04:57 Last Admin: 11/13/20 06:47 Dose: Not Given Documented by: Latanoprost (Latanoprost 0.005% Ophth Soln 2.5 Ml Bottle) 0 ml EYELF BEDTIME [facility] Last Admin: 11/15/20 20:15 Dose: 1 drop Documented by: Metformin HCl (Metformin 1,000 Mg Tab) 1,000 mg PO BIDMEALS [facility] Last Admin: 11/14/20 00:11 Dose: Not Given Documented by: Metformin HCl (Metformin 1,000 Mg Tab) 1,000 mg PO NOW ONE Stop: 11/13/20 23:01 Last Admin: 11/13/20 22:59 Dose: 1,000 mg Documented by: Metformin HCl (Metformin 1,000 Mg Tab) 1,000 mg PO BIDMEALS [facility] Last Admin: 11/16/20 07:27 Dose: 1,000 mg Documented by: Metoprolol Tartrate (Metoprolol Tartrate 50 Mg Tab) 50 mg PO BID [facility] Last Admin: 11/16/20 08:43 Dose: 50 mg Documented by: (Netarsudil/Latanoprost) [ Rocklatan 0.02%-0. 005% Eye Drops *Ptom 1 drop EYERT BEDTIME [facility] Last Admin: 11/15/20 20:15 Dose: 1 drop Documented by: Combigan Eye Drops * (Ptom) 0 each EYEBOTH BID [facility] Last Admin: 11/16/20 08:47 Dose: 1 each Documented by: Oxycodone HCl (Oxycodone 5 Mg Tab) 5 mg PO Q4H PRN PRN Reason: Pain (moderate 4-6) Last Admin: 11/13/20 06:29 Dose: 5 mg Documented by: Oxycodone/Acetaminophen (Acetaminophen/Oxycodone 325-5 Mg Tab) 2 tab PO Q6H PRN PRN Reason: BACK PAIN Last Admin: 11/15/20 17:05 Dose: 2 tab Documented by: Prednisolone Acetate (Prednisolone Acetate 1% Ophth Susp 5 Ml Bottle) 0 ml EYEBOTH BEDTIME [facility] Last Admin: 11/15/20 20:15 Dose: 1 drop Documented by: Sodium Chloride (Sodium Chloride 0.9% 10 Ml Syringe) 10 ml FLUSH ASDIRECTED PRN PRN Reason: Keep Vein Open Last Admin: 11/15/20 17:11 Dose: 10 ml Documented by: - Exam Quality Assessment: Reports: Skin Breakdown General: Reports: Alert, Oriented, Cooperative, No Acute Distress HEENT: Reports: EOMI Lungs: Reports: Clear to Auscultation Cardiovascular: Reports: Regular Rate, Regular Rhythm Extremities: Pedal Edema, Leg Pain, Increased Warmth, Redness Skin: Reports: Warm, Dry, Other (Right lower extremity erythema) Wound/Incisions: Reports: Dressing Dry and Intact, No Drainage Neurological: Reports: No New Focal Deficit Psy/Mental Status: Reports: Alert, Normal Affect, Normal Mood
== END 2020-11-16 09:00 | disposition swing bed (61) | DRG 552 ==
LOC: FB.ED 03:24 → FB.MS 04:50 → OBSVTOIN 10:10
PROVIDERS: ADMIT Family Medicine; ATTEND Family Medicine
DX: M54.40 Lumbago with sciatica, unspecified side (principal); L03.115 Cellulitis of right lower limb; M54.16 Radiculopathy, lumbar region; I10 Essential (primary) hypertension; E66.9 Obesity, unspecified; R26.2 Difficulty in walking, not elsewhere classified; E11.9 Type 2 diabetes mellitus without complications; E78.00 Pure hypercholesterolemia, unspecified; Z20.822 Contact with and (suspected) exposure to COVID-19; G89.29 Other chronic pain; M10.9 Gout, unspecified; M19.90 Unspecified osteoarthritis, unspecified site; Z96.653 Presence of artificial knee joint, bilateral; L98.419 Non-pressure chronic ulcer of buttock with unspecified severity; Z94.7 Corneal transplant status; Z79.52 Long term (current) use of systemic steroids; Z79.899 Other long term (current) drug therapy; Z79.84 Long term (current) use of oral hypoglycemic drugs; Z79.82 Long term (current) use of aspirin; Z98.49 Cataract extraction status, unspecified eye; Z85.828 Personal history of other malignant neoplasm of skin; Z68.37 Body mass index [BMI] 37.0-37.9, adult
CPT/HCPCS: 36415; 80053; 83880; 85025; A9270 ×2; J0696; J1170; J3490; U0002; 80048; 82947; 86140; 94760; 96372; 97161-GP; 97165-GO; 97530-GP; 97535-GO; 97542-GO; 99284

== ENCOUNTER 2020-11-16 08:13 | Inpatient (IN) | payer MEDICARE, BC ==
--- NOTE | 2020-11-16 09:47 | PCM.HP.2 ---
H&P History of Present Illness - General Date of Service: 11/16/20 Admit Problem/Dx: Admission Diagnosis/Problem Admission Diagnosis/Problem Back pain of lumbar region with sciatica Source of Information: Patient, Old Records History Limitations: Reports: No Limitations - History of Present Illness Initial Comments - Free Text/Narative: Mr. Hernandez was admitted through the emergency department on 11/13/2020 due to severe lower back pain with radicular pain. He has been under the care of neurosurgery and has received pain injections. He was waiting for a scheduled DEXA exam to guide further therapy. He was treated as an inpatient with opioids and muscle relaxant. He was also found to have cellulitis of the right lower extremity and treated with clindamycin and ceftriaxone. His cellulitis is improving. He was also found to have a wound on his left buttocks. The wound was appropriately cleaned and dressed. Patient will be discharged from the inpatient and admitted to swing bed at this time. Patient will have DEXA scan tomorrow to guide further treatment. Continue occupational and physical therapy. - Related Data Allergies/Adverse Reactions: Allergies Allergy/AdvReac Type Severity Reaction Status Date / Time No Known Allergies Allergy Verified 11/13/20 03:33 Home Medications: Home Meds Brimonidine Tartrate/Timolol [Combigan Eye Drops] 1 drop EYEBOTH BID 11/13/20 [History] Vit A/Vit C/Vit E/Zinc/Copper [Preservision] 1 each PO BID 11/13/20 [History] Acetaminophen/oxyCODONE [Percocet 325-5 MG] 2 tab PO Q6H PRN tablet 11/16/20 [Rx] Aspirin 81 mg PO BID tab.chew 11/16/20 [Rx] Clindamycin in 0.9 % Sod Chlor [Cleocin in NS 600 MG/50 ML] 600 mg IV Q8H bag 11/16/20 [Rx] Cyclobenzaprine [Flexeril] 10 mg PO BID 11/16/20 [History] Cyclobenzaprine [Flexeril] 10 mg PO BID tablet 11/16/20 [Rx] Latanoprost [Xalatan 0.005% Ophth Soln] 0 ml EYELF BEDTIME bottle 11/16/20 [Rx] Metoprolol Tartrate [Lopressor] 50 mg PO BID tablet 11/16/20 [Rx] Netarsudil Mesylat/Latanoprost [Rocklatan 0.02%-0.005% Eye Drp] 1 drop EYERT BEDTIME 11/16/20 [Rx] Non-Formulary Medication [NF Drug] 0 each EYEBOTH BID each 11/16/20 [Rx] Sodium Chloride 0.9% [Saline Flush] 10 ml FLUSH ASDIRECTED PRN syringe 11/16/20 [Rx] allopurinoL [Zyloprim] 300 mg PO DAILY tablet 11/16/20 [Rx] atorvaSTATin [Lipitor] 10 mg PO BEDTIME tablet 11/16/20 [Rx] cefTRIAXone [Rocephin] 2 gm IVPUSH Q24H vial 11/16/20 [Rx] cycloSPORINE [Restasis] 1 each EYEBOTH BID each 11/16/20 [Rx] metFORMIN [Glucophage] 1,000 mg PO BIDMEALS tablet 11/16/20 [Rx] prednisoLONE acetate [Pred Forte 1% Ophth Susp] 0 ml EYEBOTH BEDTIME bottle 11/16/20 [Rx] Past Medical History HEENT History: Reports: Cataract, Other (See Below) Other HEENT History: BILATERAL CATARACT SURGERY ET ALSO BILATERAL CORNEAL TRANSPLANT. Cardiovascular History: Reports: High Cholesterol, Hypertension Respiratory History: Reports: None Gastrointestinal History: Reports: Hemorrhoids Other Genitourinary History: PHIMOSIS Musculoskeletal History: Reports: Arthritis, Back Pain, Chronic, Gout, Osteoarthritis Psychiatric History: Reports: None Endocrine/Metabolic History: Reports: Diabetes, Type II, Obesity/BMI 30+ Hematologic History: Reports: None Immunologic History: Reports: None Oncologic (Cancer) History: Reports: Basal Cell Carcinoma Other Dermatologic History: BASAL TRUONG CA OF HEAD LESION - Infectious Disease History Infectious Disease History: Reports: Chicken Pox, Measles, Mumps, Pertussis (Whooping Cough) - Past Surgical History Head Surgeries/Procedures: Reports: None HEENT Surgical History: Reports: Cataract Surgery, Eye Surgery Other HEENT Surgeries/Procedures: CORNEAL TRANSPLANT bilat, bilat cataract surgery GI Surgical History: Reports: Colonoscopy, Hernia Repair/Other, Other (See Below) Other GI Surgeries/Procedures: LEFT INGUINAL HERNIORRAPHY, hemorrhoid surgery, repair of anal fissure Male Surgical History: Reports: Circumcision Musculoskeletal Surgical History: Reports: Knee Replacement Other Musculoskeletal Surgeries/Procedures:: bilat knee replacements Dermatological Surgical History: Reports: Skin Biopsy Social & Family History - Family History Family Medical History: No Pertinent Family History HEENT: Reports: None Cardiac: Reports: [place], [place] Respiratory: Reports: None Musculoskeletal: Reports: Arthritis Neurological: Reports: Alzheimers Disease Endocrine/Metabolic: Reports: Diabetes, type II Oncologic: Reports: Pancreatic - Tobacco Use Tobacco Use Status *Q: Never Tobacco User - Caffeine Use Caffeine Use: Reports: Coffee - Recreational Drug Use Recreational Drug Use: No H&P Review of Systems - Review of Systems: Review Of Systems: See Below General: Reports: Weakness HEENT: Reports: No Symptoms Pulmonary: Reports: No Symptoms Cardiovascular: Reports: No Symptoms Gastrointestinal: Reports: No Symptoms Genitourinary: Reports: No Symptoms Musculoskeletal: Reports: Back Pain, Leg Pain, Foot Pain Skin: Reports: Erythema, Wound Psychiatric: Reports: No Symptoms Neurological: Reports: Numbness, Difficulty Walking, Weakness Immunologic: Reports: No Symptoms Exam - Exam Exam: See Below - Vital Signs Weight: 113.398 kg - Exam Quality Assessment: Skin Breakdown General: Alert, Oriented, Cooperative HEENT: EOMI Lungs: Clear to Auscultation Cardiovascular: Regular Rate, Regular Rhythm Extremities: Pedal Edema, Leg Pain, Increased Warmth, Redness Peripheral Pulses: 2+: Radial (L), Radial (R) Skin: Warm, Dry Neurological: Sensation Intact, Abnormal Gait Neuro Extensive - Mental Status: Alert, Oriented x3, Normal Mood/Affect Psychiatric: Alert, Normal Affect, Normal Mood Sepsis Event Note - Evaluation Sepsis Screening Result: No Definite Risk - Problem List (1) Hyperuricemia SNOMED Code(s): 67087378 ICD Code: E79.0 - HYPERURICEMIA W/O SIGNS OF INFLAM ARTHRIT AND TOPHACEOUS DIS Status: Chronic Current Visit: Yes (2) Cornea transplant recipient SNOMED Code(s): 153953452 ICD Code: Z94.7 - CORNEAL TRANSPLANT STATUS Status: Chronic Current Visit: Yes (3) Ambulatory dysfunction SNOMED Code(s): 920881995 ICD Code: R26.2 - DIFFICULTY IN WALKING, NOT ELSEWHERE CLASSIFIED Status: Acute Current Visit: No (4) Cellulitis SNOMED Code(s): 744540397 ICD Code: L03.90 - CELLULITIS, UNSPECIFIED Status: Acute Current Visit: No Qualifiers: Site of cellulitis: extremity Site of cellulitis of extremity: lower extremity Laterality: unspecified laterality Qualified Code(s): L03.119 - Cellulitis of unspecified part of limb (5) Chronic radicular low back pain SNOMED Code(s): 85187175, 70782017 ICD Code: M54.16 - RADICULOPATHY, LUMBAR REGION; G89.29 - OTHER CHRONIC PAIN Status: Chronic Current Visit: No (6) HTN (hypertension) SNOMED Code(s): 68012451 ICD Code: I10 - ESSENTIAL (PRIMARY) HYPERTENSION Status: Chronic Current Visit: No Qualifiers: Hypertension type: essential hypertension Qualified Code(s): I10 - Essential (primary) hypertension (7) Obesity SNOMED Code(s): 134456448, 365467744 ICD Code: E66.9 - OBESITY, UNSPECIFIED Status: Chronic Current Visit: No Qualifiers: Obesity type: due to excess calories (8) Sciatica SNOMED Code(s): 69616655 ICD Code: M54.30 - SCIATICA, UNSPECIFIED SIDE Status: Acute Current Visit: No Problem List Initiated/Reviewed/Updated: Yes Orders Last 24hrs: Active Orders 24 hr Category Date Time Status Patient Status [ADT] Routine ADT 11/16/20 09:00 Ordered Antiembolic Devices [RC] .Routine Care 11/16/20 09:25 Ordered Pulse Oximetry [RC] PRN Care 11/16/20 09:23 Ordered VTE/DVT Education [RC] Click to Edit Care 11/16/20 09:25 Ordered Vital Signs [RC] Q8HR Care 11/16/20 09:23 Ordered OT Evaluation and Treatment [CONS] Routine Cons 11/16/20 09:39 Ordered PT Evaluation and Treatment [CONS] Routine Cons 11/16/20 09:39 Ordered Regular Diet [DIET] Diet 11/16/20 Lunch Ordered Acetaminophen/oxyCODONE [Percocet 325-5 MG] Med 11/16/20 09:28 Ordered 2 tab PO Q6H PRN Aspirin Med 11/16/20 21:00 Ordered 81 mg PO BID Brimonidine Tartrate/Timolol [Combigan 0.2%-0.5% Eye Med 11/16/20 21:00 Ordered Drops] 1 drop EYEBOTH BID Clindamycin in 0.9 % Sod Chlor [Cleocin in NS 600 MG/50 Med 11/16/20 10:00 Ordered ML] 600 mg IV Q8H Cyclobenzaprine [Flexeril] Med 11/16/20 21:00 Ordered 10 mg PO BID Metoprolol Tartrate [Lopressor] Med 11/16/20 21:00 Ordered 50 mg PO BID Netarsudil Mesylat/Latanoprost [Rocklatan 0.02%-0.005% Med 11/16/20 21:00 Ordered Eye Drp] 1 drop EYERT BEDTIME Sodium Chloride 0.9% [Saline Flush] Med 11/16/20 09:28 Ordered 10 ml FLUSH ASDIRECTED PRN allopurinoL [Zyloprim] Med 11/17/20 09:00 Ordered 300 mg PO DAILY atorvaSTATin [Lipitor] Med 11/16/20 21:00 Ordered 10 mg PO BEDTIME cefTRIAXone [Rocephin] Med 11/16/20 09:30 Ordered 2 gm IVPUSH Q24H cycloSPORINE [Restasis] Med 11/16/20 21:00 Ordered 1 each EYEBOTH BID metFORMIN [Glucophage] Med 11/16/20 18:00 Ordered 1,000 mg PO BIDMEALS prednisoLONE acetate [Pred Forte 1% Ophth Susp] Med 11/16/20 21:00 Ordered 1 ml EYEBOTH BEDTIME DVT/VTE Prophylaxis Reflex [OM.PC] Per Unit Routine Oth 11/16/20 09:23 Ordered Resuscitation Status Routine Resus Stat 11/16/20 09:23 Ordered Medication Orders Allopurinol (Allopurinol 300 Mg Tab) 300 mg PO DAILY [facility] Aspirin (Aspirin 81 Mg Tab.Chew) 81 mg PO BID [facility] Atorvastatin Calcium (Atorvastatin 10 Mg Tab) 10 mg PO BEDTIME [facility] Ceftriaxone Sodium (Ceftriaxone 2 Gm Vial) 2 gm IVPUSH Q24H [facility] Clindamycin/Sodium Chloride (Clindamycin In 0.9 % Nacl 600 Mg/50 Ml Premix Bag) 600 mg IV Q8H [facility] Cyclobenzaprine HCl (Cyclobenzaprine 10 Mg Tab) 10 mg PO BID [facility] Cyclosporine (Cyclosporine Ophth Drops U/D Box Of 30) 1 each EYEBOTH BID [facility] Metformin HCl (Metformin 1,000 Mg Tab) 1,000 mg PO BIDMEALS [facility] Metoprolol Tartrate (Metoprolol Tartrate 50 Mg Tab) 50 mg PO BID [facility] Non-Formulary Medication (Brimonidine Tartrate/Timolol [Combigan 0.2%-0.5% Eye Drops]) 1 drop EYEBOTH BID [facility] Non-Formulary Medication (Netarsudil Mesylat/Latanoprost [Rocklatan 0.02%-0.005% Eye Drp]) 1 drop EYERT BEDTIME [facility] Oxycodone/Acetaminophen (Acetaminophen/Oxycodone 325-5 Mg Tab) 2 tab PO Q6H PRN PRN Reason: BACK PAIN Prednisolone Acetate (Prednisolone Acetate 1% Ophth Susp 5 Ml Bottle) 1 ml EYEBOTH BEDTIME [facility] Sodium Chloride (Sodium Chloride 0.9% 10 Ml Syringe) 10 ml FLUSH ASDIRECTED PRN PRN Reason: Keep Vein Open Assessment/Plan Comment:: Admit to swing bed. Continue occupational physical therapy. Continue ceftriaxone and clindamycin for right lower extremity cellulitis. Continue wound care. Patient will likely go to [place] tomorrow for DEXA scan which will help to guide further treatment. Start enoxaparin, 40 mg subcu daily for DVT prophylaxis
[2020-11-16] MEDS ORDERED: CLINDAMYCIN IV SCH (10:00)
[2020-11-16] MEDS ORDERED: NACL IV SCH (10:00)
[2020-11-16] MEDS: cefTRIAXone 2 GM Vial IVPUSH SCH (10:32)
[2020-11-16] MEDS: Clindamycin in 0.9 % Sod Chlor 600 MG/50 ML BAG IV SCH ×2 (10:40→17:16)
[2020-11-16] MEDS: Acetaminophen/oxyCODONE 325-5 MG Tab PO PRN (16:05)
[2020-11-16] MEDS: metFORMIN 1,000 MG Tab PO SCH (17:18)
[2020-11-16] MEDS: Metoprolol Tartrate 50 MG Tab PO SCH (20:00)
[2020-11-16] MEDS: Cyclobenzaprine 10 MG Tab PO SCH (20:00)
[2020-11-16] MEDS: atorvaSTATin 10 MG Tab PO SCH (20:00)
[2020-11-16] MEDS: Aspirin 81 MG Tab.Chew PO SCH (20:00)
[2020-11-16] MEDS: prednisoLONE Acetate 1% Ophth Susp 5 ML Bottle EYEBOTH SCH (20:02)
[2020-11-16] MEDS: ROCKLATAN EYERT SCH (20:03)
[2020-11-16] MEDS: EYE EYERT SCH (20:03)
[2020-11-16] MEDS: cycloSPORINE Ophth Drops U/D Box of 30 EYEBOTH SCH (20:03)
[2020-11-17] MEDS: Clindamycin in 0.9 % Sod Chlor 600 MG/50 ML BAG IV SCH ×3 (02:51→18:16)
[2020-11-17] MEDS: Acetaminophen/oxyCODONE 325-5 MG Tab PO PRN (06:19)
[2020-11-17] MEDS: metFORMIN 1,000 MG Tab PO SCH ×2 (07:42→18:25)
[2020-11-17] MEDS: Aspirin 81 MG Tab.Chew PO SCH ×3 (07:43→20:17)
[2020-11-17] MEDS: Cyclobenzaprine 10 MG Tab PO SCH ×3 (07:44→20:17)
[2020-11-17] MEDS: Metoprolol Tartrate 50 MG Tab PO SCH ×3 (07:44→20:19)
[2020-11-17] MEDS: Allopurinol 300 MG Tab PO SCH ×2 (07:45→11:19)
[2020-11-17] MEDS: cycloSPORINE Ophth Drops U/D Box of 30 EYEBOTH SCH ×3 (07:48→20:18)
[2020-11-17] MEDS: cefTRIAXone 2 GM Vial IVPUSH SCH ×2 (07:51→11:09)
[2020-11-17] MEDS: Sodium Chloride 0.9% 10 ML Syringe FLUSH PRN ×2 (11:18→11:48)
[2020-11-17] MEDS: atorvaSTATin 10 MG Tab PO SCH (20:17)
[2020-11-17] MEDS: EYE EYERT SCH (20:19)
[2020-11-17] MEDS: ROCKLATAN EYERT SCH (20:19)
[2020-11-17] MEDS: prednisoLONE Acetate 1% Ophth Susp 5 ML Bottle EYEBOTH SCH (20:19)
[2020-11-18] MEDS: Clindamycin in 0.9 % Sod Chlor 600 MG/50 ML BAG IV SCH ×3 (01:37→18:25)
[2020-11-18] MEDS: metFORMIN 1,000 MG Tab PO SCH ×2 (09:19→18:25)
[2020-11-18] MEDS: Cyclobenzaprine 10 MG Tab PO SCH ×2 (09:20→21:17)
[2020-11-18] MEDS: Aspirin 81 MG Tab.Chew PO SCH ×2 (09:20→21:17)
[2020-11-18] MEDS: Metoprolol Tartrate 50 MG Tab PO SCH ×2 (09:20→21:16)
[2020-11-18] MEDS: cefTRIAXone 2 GM Vial IVPUSH SCH (09:21)
[2020-11-18] MEDS: Allopurinol 300 MG Tab PO SCH (09:21)
[2020-11-18] MEDS: cycloSPORINE Ophth Drops U/D Box of 30 EYEBOTH SCH ×2 (09:22→21:13)
[2020-11-18] MEDS: Acetaminophen/oxyCODONE 325-5 MG Tab PO PRN ×2 (09:29→16:37)
[2020-11-18] MEDS: Sodium Chloride 0.9% 10 ML Syringe FLUSH PRN ×2 (16:38→18:26)
[2020-11-18] MEDS: ROCKLATAN EYERT SCH (21:12)
[2020-11-18] MEDS: EYE EYERT SCH (21:12)
[2020-11-18] MEDS: prednisoLONE Acetate 1% Ophth Susp 5 ML Bottle EYEBOTH SCH (21:14)
[2020-11-18] MEDS: atorvaSTATin 10 MG Tab PO SCH (21:16)
[2020-11-19] MEDS: Clindamycin in 0.9 % Sod Chlor 600 MG/50 ML BAG IV SCH ×3 (01:56→17:34)
[2020-11-19] MEDS: Sodium Chloride 0.9% 10 ML Syringe FLUSH PRN ×2 (02:27→09:18)
[2020-11-19] MEDS: Aspirin 81 MG Tab.Chew PO SCH ×2 (08:22→20:56)
[2020-11-19] MEDS: Allopurinol 300 MG Tab PO SCH (08:22)
[2020-11-19] MEDS: Metoprolol Tartrate 50 MG Tab PO SCH ×2 (08:23→20:55)
[2020-11-19] MEDS: metFORMIN 1,000 MG Tab PO SCH ×2 (08:23→17:36)
[2020-11-19] MEDS: Cyclobenzaprine 10 MG Tab PO SCH ×2 (08:24→20:55)
[2020-11-19] MEDS: cycloSPORINE Ophth Drops U/D Box of 30 EYEBOTH SCH ×2 (08:25→20:51)
[2020-11-19] MEDS: Acetaminophen/oxyCODONE 325-5 MG Tab PO PRN ×2 (09:11→20:49)
[2020-11-19] MEDS ORDERED: Clindamycin in 0.9 % Sod Chlor 600 MG/50 ML BAG IV SCH (10:00)
[2020-11-19] MEDS: prednisoLONE Acetate 1% Ophth Susp 5 ML Bottle EYEBOTH SCH (20:52)
[2020-11-19] MEDS: ROCKLATAN EYERT SCH (20:53)
[2020-11-19] MEDS: EYE EYERT SCH (20:53)
[2020-11-19] MEDS: atorvaSTATin 10 MG Tab PO SCH (20:56)
[2020-11-20] MEDS: Clindamycin in 0.9 % Sod Chlor 600 MG/50 ML BAG IV SCH ×3 (01:35→17:03)
[2020-11-20] MEDS: Sodium Chloride 0.9% 10 ML Syringe FLUSH PRN ×3 (02:07→17:03)
[2020-11-20] MEDS: Aspirin 81 MG Tab.Chew PO SCH ×2 (08:42→20:54)
[2020-11-20] MEDS: metFORMIN 1,000 MG Tab PO SCH ×2 (08:42→17:04)
[2020-11-20] MEDS: Cyclobenzaprine 10 MG Tab PO SCH ×2 (08:42→20:54)
[2020-11-20] MEDS: cycloSPORINE Ophth Drops U/D Box of 30 EYEBOTH SCH ×2 (08:43→20:56)
[2020-11-20] MEDS: Metoprolol Tartrate 50 MG Tab PO SCH ×2 (08:43→20:58)
[2020-11-20] MEDS: Acetaminophen/oxyCODONE 325-5 MG Tab PO PRN ×2 (08:44→17:27)
[2020-11-20] MEDS: Allopurinol 300 MG Tab PO SCH (08:44)
[2020-11-20] MEDS: atorvaSTATin 10 MG Tab PO SCH (20:54)
[2020-11-20] MEDS: prednisoLONE Acetate 1% Ophth Susp 5 ML Bottle EYEBOTH SCH (20:55)
[2020-11-20] MEDS: ROCKLATAN EYERT SCH (20:55)
[2020-11-20] MEDS: EYE EYERT SCH (20:55)
[2020-11-21] MEDS: Clindamycin in 0.9 % Sod Chlor 600 MG/50 ML BAG IV SCH ×3 (02:16→17:01)
[2020-11-21] MEDS: metFORMIN 1,000 MG Tab PO SCH ×2 (08:31→17:05)
[2020-11-21] MEDS: Aspirin 81 MG Tab.Chew PO SCH ×2 (08:31→21:01)
[2020-11-21] MEDS: Cyclobenzaprine 10 MG Tab PO SCH ×2 (08:31→21:01)
[2020-11-21] MEDS: Metoprolol Tartrate 50 MG Tab PO SCH ×2 (08:31→21:02)
[2020-11-21] MEDS: Allopurinol 300 MG Tab PO SCH (08:32)
[2020-11-21] MEDS: Acetaminophen/oxyCODONE 325-5 MG Tab PO PRN (08:32)
[2020-11-21] MEDS: cycloSPORINE Ophth Drops U/D Box of 30 EYEBOTH SCH ×2 (08:33→21:02)
[2020-11-21] MEDS: Sodium Chloride 0.9% 10 ML Syringe FLUSH PRN ×2 (09:44→17:04)
--- NOTE | 2020-11-21 10:33 | PCM.PN ---
- General Info Date of Service: 11/21/20 Admission Dx/Problem (Free Text): The patient feels that his cellulitis is was much improved. Denies any fevers or chills or pain. Cells low back pain he can only negative for little bit and then he cannot hardly walk. He also states he has some skin lesion on the back in the form of an ulcer. - Patient Data Vitals - Most Recent: Last Vital Signs Temp 98.0 F 11/21/20 08:00 Pulse 75 11/21/20 08:31 Resp 16 11/21/20 08:00 BP 156/80 H 11/21/20 08:31 Pulse Ox 99 11/21/20 08:00 Weight - Most Recent: 250 lb Lab Results Last 24 Hours: Laboratory Results - last 24 hr 11/20/20 11/21/20 Range/Units 16:54 06:10 POC Glucose 93 111 (80-116) mg/dL Med Orders - Current: Current Medications Allopurinol (Allopurinol 300 Mg Tab) 300 mg PO DAILY [facility] Last Admin: 11/21/20 08:32 Dose: 300 mg Documented by: Aspirin (Aspirin 81 Mg Tab.Chew) 81 mg PO BID [facility] Last Admin: 11/21/20 08:31 Dose: 81 mg Documented by: Atorvastatin Calcium (Atorvastatin 10 Mg Tab) 10 mg PO BEDTIME [facility] Last Admin: 11/20/20 20:54 Dose: 10 mg Documented by: Cyclobenzaprine HCl (Cyclobenzaprine 10 Mg Tab) 10 mg PO BID [facility] Last Admin: 11/21/20 08:31 Dose: 10 mg Documented by: Cyclosporine (Cyclosporine Ophth Drops U/D Box Of 30) 0 each EYEBOTH BID [facility] Last Admin: 11/21/20 08:33 Dose: 1 drop Documented by: Clindamycin/Sodium Chloride (Cleocin In Ns 600 Mg/50 Ml) 600 mg in 50 mls @ 100 mls/hr IV Q8H [facility] Stop: 11/23/20 02:29 Last Admin: 11/21/20 09:44 Dose: 100 mls/hr Documented by: Metformin HCl (Metformin 1,000 Mg Tab) 1,000 mg PO BIDMEALS [facility] Last Admin: 11/21/20 08:31 Dose: 1,000 mg Documented by: Metoprolol Tartrate (Metoprolol Tartrate 50 Mg Tab) 50 mg PO BID [facility] Last Admin: 11/21/20 08:31 Dose: 50 mg Documented by: Oxycodone/Acetaminophen (Acetaminophen/Oxycodone 325-5 Mg Tab) 2 tab PO Q6H PRN PRN Reason: BACK PAIN Last Admin: 11/21/20 08:32 Dose: 2 tab Documented by: Combigan 0.2%-0.5% Eye Drops *Pt Own Med* 0 each EYEBOTH BID [facility] Last Admin: 11/21/20 08:33 Dose: 1 each Documented by: Rocklatan 0.02%-0. 005% Eye Drops *Pt Own Med* 0 each EYERT BEDTIME [facility] Last Admin: 11/20/20 20:55 Dose: 1 each Documented by: Prednisolone Acetate (Prednisolone Acetate 1% Ophth Susp 5 Ml Bottle) 0 ml EYEBOTH BEDTIME [facility] Last Admin: 11/20/20 20:55 Dose: 1 drop Documented by: Sodium Chloride (Sodium Chloride 0.9% 10 Ml Syringe) 10 ml FLUSH ASDIRECTED PRN PRN Reason: Keep Vein Open Last Admin: 11/21/20 09:44 Dose: 10 ml Documented by: Discontinued Medications Ceftriaxone Sodium (Ceftriaxone 2 Gm Vial) 2 gm IVPUSH Q24H [facility] Last Admin: 11/18/20 09:21 Dose: 2 gm Documented by: Clindamycin/Sodium Chloride (Clindamycin In 0.9 % Nacl 600 Mg/50 Ml Premix Bag) 600 mg IV Q8H [facility] Clindamycin/Sodium Chloride (Cleocin In Ns 600 Mg/50 Ml) 600 mg in 50 mls @ 100 mls/hr IV Q8H [facility] Last Admin: 11/19/20 01:56 Dose: 100 mls/hr Documented by: Clindamycin/Sodium Chloride (Cleocin In Ns 600 Mg/50 Ml) 600 mg in 50 mls @ 100 mls/hr IV Q8H [facility] - Exam General: Alert, Oriented Skin: Other (Mild erythema right foot. Buttocks on the left side has a dime- sized ulcer.) - Patient Data Lab Results Last 24 hrs: Laboratory Results - last 24 hr 11/20/20 11/21/20 Range/Units 16:54 06:10 POC Glucose 93 111 (80-116) mg/dL Sepsis Event Note - Evaluation Sepsis Screening Result: No Definite Risk - Focused Exam Vital Signs: Vital Signs Temp Pulse Pulse Resp BP BP Pulse Ox 11/21/20 08:31 75 156/80 H 11/21/20 08:00 98.0 F 75 16 156/80 H 99 - Problem List & Annotations (1) Decubitus ulcer SNOMED Code(s): 319376151 Code(s): L89.90 - PRESSURE ULCER OF UNSPECIFIED SITE, UNSPECIFIED STAGE Status: Acute Current Visit: Yes (2) Cellulitis SNOMED Code(s): 610771969 Code(s): L03.90 - CELLULITIS, UNSPECIFIED Status: Acute Current Visit: No Qualifiers: Site of cellulitis: extremity Site of cellulitis of extremity: lower extremity Laterality: unspecified laterality Qualified Code(s): L03.119 - Cellulitis of unspecified part of limb (3) Chronic radicular low back pain SNOMED Code(s): 43002418, 51846837 Code(s): M54.16 - RADICULOPATHY, LUMBAR REGION; G89.29 - OTHER CHRONIC PAIN Status: Chronic Current Visit: No - Problem List Review Problem List Initiated/Reviewed/Updated: Yes - My Orders Last 24 Hours: My Active Orders 11/21/20 10:30 C-REACTIVE PROTEIN [CHEM] Routine CBC WITH AUTO DIFF [HEME] Routine - Plan Plan:: Patient cannot have surgery on his back to the cellulitis is better. It appears to be improved. Is getting antibiotics for the next 3 days and is done. I will check a CBC and C-reactive protein today. I observed his buttocks and we should do wound care and keep the pressure off it that healed up. Because he has not weighed have this Surgery until the ulcer heals either.
[2020-11-21] MEDS: prednisoLONE Acetate 1% Ophth Susp 5 ML Bottle EYEBOTH SCH (21:00)
[2020-11-21] MEDS: atorvaSTATin 10 MG Tab PO SCH (21:02)
[2020-11-21] MEDS: ROCKLATAN EYERT SCH (21:05)
[2020-11-21] MEDS: EYE EYERT SCH (21:05)
[2020-11-22] MEDS: Clindamycin in 0.9 % Sod Chlor 600 MG/50 ML BAG IV SCH ×3 (02:07→18:32)
[2020-11-22] MEDS: Sodium Chloride 0.9% 10 ML Syringe FLUSH PRN ×3 (02:08→18:32)
[2020-11-22] MEDS: Allopurinol 300 MG Tab PO SCH (09:00)
[2020-11-22] MEDS: metFORMIN 1,000 MG Tab PO SCH ×2 (09:03→18:20)
[2020-11-22] MEDS: Metoprolol Tartrate 50 MG Tab PO SCH ×2 (09:03→21:30)
[2020-11-22] MEDS: Cyclobenzaprine 10 MG Tab PO SCH ×2 (09:04→21:30)
[2020-11-22] MEDS: Aspirin 81 MG Tab.Chew PO SCH ×2 (09:04→21:30)
[2020-11-22] MEDS: cycloSPORINE Ophth Drops U/D Box of 30 EYEBOTH SCH ×2 (09:05→21:32)
[2020-11-22] MEDS: Acetaminophen/oxyCODONE 325-5 MG Tab PO PRN (09:52)
[2020-11-22] MEDS: atorvaSTATin 10 MG Tab PO SCH (21:30)
[2020-11-22] MEDS: prednisoLONE Acetate 1% Ophth Susp 5 ML Bottle EYEBOTH SCH (21:31)
[2020-11-22] MEDS: EYE EYERT SCH (21:33)
[2020-11-22] MEDS: ROCKLATAN EYERT SCH (21:33)
[2020-11-23] MEDS: Clindamycin in 0.9 % Sod Chlor 600 MG/50 ML BAG IV SCH ×2 (00:44→01:23)
[2020-11-23] MEDS: Sodium Chloride 0.9% 10 ML Syringe FLUSH PRN (01:24)
[2020-11-23] MEDS: Aspirin 81 MG Tab.Chew PO SCH ×2 (08:03→20:59)
[2020-11-23] MEDS: metFORMIN 1,000 MG Tab PO SCH ×2 (08:03→17:50)
[2020-11-23] MEDS: Cyclobenzaprine 10 MG Tab PO SCH ×2 (08:03→20:59)
[2020-11-23] MEDS: Metoprolol Tartrate 50 MG Tab PO SCH ×2 (08:04→20:59)
[2020-11-23] MEDS: Allopurinol 300 MG Tab PO SCH (08:04)
[2020-11-23] MEDS: cycloSPORINE Ophth Drops U/D Box of 30 EYEBOTH SCH ×2 (08:04→20:57)
[2020-11-23] MEDS: Acetaminophen/oxyCODONE 325-5 MG Tab PO PRN (08:12)
[2020-11-23] MEDS: prednisoLONE Acetate 1% Ophth Susp 5 ML Bottle EYEBOTH SCH (20:57)
[2020-11-23] MEDS: atorvaSTATin 10 MG Tab PO SCH (20:59)
[2020-11-23] MEDS: EYE EYERT SCH (21:01)
[2020-11-23] MEDS: ROCKLATAN EYERT SCH (21:01)
[2020-11-24] MEDS: Aspirin 81 MG Tab.Chew PO SCH ×2 (08:10→20:17)
[2020-11-24] MEDS: Metoprolol Tartrate 50 MG Tab PO SCH ×2 (08:10→20:19)
[2020-11-24] MEDS: Cyclobenzaprine 10 MG Tab PO SCH ×2 (08:10→20:18)
[2020-11-24] MEDS: metFORMIN 1,000 MG Tab PO SCH ×2 (08:10→17:00)
[2020-11-24] MEDS: Allopurinol 300 MG Tab PO SCH (08:12)
[2020-11-24] MEDS: cycloSPORINE Ophth Drops U/D Box of 30 EYEBOTH SCH ×2 (08:12→20:21)
[2020-11-24] MEDS: Sodium Chloride 0.9% 10 ML Syringe FLUSH PRN (08:15)
[2020-11-24] MEDS: Acetaminophen/oxyCODONE 325-5 MG Tab PO PRN (08:20)
--- NOTE | 2020-11-24 08:29 | PCM.PN ---
- General Info Date of Service: 11/24/20 Admission Dx/Problem (Free Text): Patient states legs are weak and back hurts when he stands up. Thinks his legs are much less red. No fevers or chills. - Patient Data Vitals - Most Recent: Last Vital Signs Temp 98.0 F 11/23/20 08:00 Pulse 96 11/24/20 08:10 Resp 22 H 11/23/20 08:00 BP 141/79 H 11/24/20 08:10 Pulse Ox 97 11/23/20 08:00 Weight - Most Recent: 255 lb 3.2 oz Lab Results Last 24 Hours: Laboratory Results - last 24 hr 11/16/20 11/16/20 11/17/20 Range/Units 16:52 16:52 06:18 POC Glucose 120 H 120 H 133 H (80-116) mg/dL 11/17/20 11/17/20 11/17/20 Range/Units 06:18 18:00 18:00 POC Glucose 133 H 113 113 (80-116) mg/dL 11/18/20 11/18/20 11/18/20 Range/Units 05:43 05:43 17:25 POC Glucose 119 H 119 H 98 (80-116) mg/dL 11/18/20 11/19/20 11/19/20 Range/Units 17:25 05:34 05:34 POC Glucose 98 102 102 (80-116) mg/dL 11/19/20 11/19/20 11/20/20 Range/Units 17:40 17:40 05:53 POC Glucose 111 111 100 (80-116) mg/dL 11/20/20 11/20/20 11/20/20 Range/Units 05:53 16:54 16:54 POC Glucose 100 93 93 (80-116) mg/dL 11/21/20 11/21/20 11/21/20 Range/Units 06:10 06:10 16:56 POC Glucose 111 111 120 H (80-116) mg/dL 11/21/20 11/22/20 11/22/20 Range/Units 16:56 18:21 18:21 POC Glucose 120 H 127 H 127 H (80-116) mg/dL 11/23/20 11/23/20 11/23/20 Range/Units 05:51 05:51 17:14 POC Glucose 103 103 84 (80-116) mg/dL 11/23/20 11/24/20 11/24/20 Range/Units 17:14 06:14 06:14 POC Glucose 84 116 116 (80-116) mg/dL Med Orders - Current: Current Medications Allopurinol (Allopurinol 300 Mg Tab) 300 mg PO DAILY [facility] Last Admin: 11/24/20 08:12 Dose: 300 mg Documented by: Aspirin (Aspirin 81 Mg Tab.Chew) 81 mg PO BID [facility] Last Admin: 11/24/20 08:10 Dose: 81 mg Documented by: Atorvastatin Calcium (Atorvastatin 10 Mg Tab) 10 mg PO BEDTIME [facility] Last Admin: 11/23/20 20:59 Dose: 10 mg Documented by: Cyclobenzaprine HCl (Cyclobenzaprine 10 Mg Tab) 10 mg PO BID [facility] Last Admin: 11/24/20 08:10 Dose: 10 mg Documented by: Cyclosporine (Cyclosporine Ophth Drops U/D Box Of 30) 0 each EYEBOTH BID [facility] Last Admin: 11/24/20 08:12 Dose: 1 drop Documented by: Metformin HCl (Metformin 1,000 Mg Tab) 1,000 mg PO BIDMEALS [facility] Last Admin: 11/24/20 08:10 Dose: 1,000 mg Documented by: Metoprolol Tartrate (Metoprolol Tartrate 50 Mg Tab) 50 mg PO BID [facility] Last Admin: 11/24/20 08:10 Dose: 50 mg Documented by: Combigan 0.2%-0.5% Eye Drops *Pt Own Med* 0 each EYEBOTH BID [facility] Last Admin: 11/24/20 08:11 Dose: 1 each Documented by: Rocklatan 0.02%-0. 005% Eye Drops *Pt Own Med* 0 each EYERT BEDTIME [facility] Last Admin: 11/23/20 21:01 Dose: 1 each Documented by: Prednisolone Acetate (Prednisolone Acetate 1% Ophth Susp 5 Ml Bottle) 0 ml EYEBOTH BEDTIME [facility] Last Admin: 11/23/20 20:57 Dose: 1 drop Documented by: Discontinued Medications Ceftriaxone Sodium (Ceftriaxone 2 Gm Vial) 2 gm IVPUSH Q24H [facility] Last Admin: 11/18/20 09:21 Dose: 2 gm Documented by: Clindamycin/Sodium Chloride (Clindamycin In 0.9 % Nacl 600 Mg/50 Ml Premix Bag) 600 mg IV Q8H [facility] Clindamycin/Sodium Chloride (Cleocin In Ns 600 Mg/50 Ml) 600 mg in 50 mls @ 100 mls/hr IV Q8H [facility] Last Admin: 11/19/20 01:56 Dose: 100 mls/hr Documented by: Clindamycin/Sodium Chloride (Cleocin In Ns 600 Mg/50 Ml) 600 mg in 50 mls @ 100 mls/hr IV Q8H [facility] Clindamycin/Sodium Chloride (Cleocin In Ns 600 Mg/50 Ml) 600 mg in 50 mls @ 100 mls/hr IV Q8H [facility] Stop: 11/23/20 02:29 Last Admin: 11/23/20 01:23 Dose: 100 mls/hr Documented by: Oxycodone/Acetaminophen (Acetaminophen/Oxycodone 325-5 Mg Tab) 2 tab PO Q6H PRN PRN Reason: BACK PAIN Last Admin: 11/24/20 08:20 Dose: 2 tab Documented by: Sodium Chloride (Sodium Chloride 0.9% 10 Ml Syringe) 10 ml FLUSH ASDIRECTED PRN PRN Reason: Keep Vein Open Last Admin: 11/24/20 08:15 Dose: 10 ml Documented by: - Exam General: Alert, Oriented Lungs: Normal Respiratory Effort Skin: Other (Mild discoloration of the feet really no redness. Left buttocks ulcer is healing nicely without any erythema or purulent drainage.) - Patient Data Lab Results Last 24 hrs: Laboratory Results - last 24 hr 11/16/20 11/16/20 11/17/20 Range/Units 16:52 16:52 06:18 POC Glucose 120 H 120 H 133 H (80-116) mg/dL 11/17/20 11/17/20 11/17/20 Range/Units 06:18 18:00 18:00 POC Glucose 133 H 113 113 (80-116) mg/dL 11/18/20 11/18/20 11/18/20 Range/Units 05:43 05:43 17:25 POC Glucose 119 H 119 H 98 (80-116) mg/dL 11/18/20 11/19/20 11/19/20 Range/Units 17:25 05:34 05:34 POC Glucose 98 102 102 (80-116) mg/dL 11/19/20 11/19/20 11/20/20 Range/Units 17:40 17:40 05:53 POC Glucose 111 111 100 (80-116) mg/dL 11/20/20 11/20/20 11/20/20 Range/Units 05:53 16:54 16:54 POC Glucose 100 93 93 (80-116) mg/dL 11/21/20 11/21/20 11/21/20 Range/Units 06:10 06:10 16:56 POC Glucose 111 111 120 H (80-116) mg/dL 11/21/20 11/22/20 11/22/20 Range/Units 16:56 18:21 18:21 POC Glucose 120 H 127 H 127 H (80-116) mg/dL 11/23/20 11/23/20 11/23/20 Range/Units 05:51 05:51 17:14 POC Glucose 103 103 84 (80-116) mg/dL 11/23/20 11/24/20 11/24/20 Range/Units 17:14 06:14 06:14 POC Glucose 84 116 116 (80-116) mg/dL Result Diagrams: 11/21/20 11:05 Sepsis Event Note - Evaluation Sepsis Screening Result: No Definite Risk - Focused Exam Vital Signs: Vital Signs Pulse BP 11/24/20 08:10 96 141/79 H 11/23/20 20:59 82 150/84 H - Problem List & Annotations (1) Decubitus ulcer SNOMED Code(s): 672828738 Code(s): L89.90 - PRESSURE ULCER OF UNSPECIFIED SITE, UNSPECIFIED STAGE Status: Acute Current Visit: Yes (2) Cellulitis SNOMED Code(s): 603321731 Code(s): L03.90 - CELLULITIS, UNSPECIFIED Status: Acute Current Visit: No Qualifiers: Site of cellulitis: extremity Site of cellulitis of extremity: lower extremity Laterality: unspecified laterality Qualified Code(s): L03.119 - Cellulitis of unspecified part of limb (3) Chronic radicular low back pain SNOMED Code(s): 48004780, 88022147 Code(s): M54.16 - RADICULOPATHY, LUMBAR REGION; G89.29 - OTHER CHRONIC PAIN Status: Chronic Current Visit: No - Problem List Review Problem List Initiated/Reviewed/Updated: Yes - My Orders Last 24 Hours: My Active Orders 11/24/20 08:21 Discontinue Saline Lock [Peripheral IV Discontinue] [OM.PC] Routine 11/24/20 08:26 Peripheral IV Discontinue [OM.PC] Routine 11/24/20 09:00 Acetaminophen/Codeine [Tylenol with Codeine No.3 300MG/30MG] 1 tab PO QID - Plan Plan:: 1. Continue wound care on the left buttocks. Making good progress. 2. Stop Percocet and start Tylenol 3 one 4 times a day this evening he has back pain under better control. 3. 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
[2020-11-24] MEDS: Acetaminophen/Codeine 300-30 MG Tab PO SCH ×3 (13:23→20:23)
[2020-11-24] MEDS: atorvaSTATin 10 MG Tab PO SCH (20:18)
[2020-11-24] MEDS: EYE EYERT SCH (20:20)
[2020-11-24] MEDS: ROCKLATAN EYERT SCH (20:20)
[2020-11-24] MEDS: prednisoLONE Acetate 1% Ophth Susp 5 ML Bottle EYEBOTH SCH (20:26)
[2020-11-25] MEDS: Acetaminophen/Codeine 300-30 MG Tab PO SCH ×4 (08:31→20:21)
[2020-11-25] MEDS: metFORMIN 1,000 MG Tab PO SCH ×2 (08:32→17:21)
[2020-11-25] MEDS: Aspirin 81 MG Tab.Chew PO SCH ×2 (08:34→20:16)
[2020-11-25] MEDS: Metoprolol Tartrate 50 MG Tab PO SCH ×2 (08:34→20:16)
[2020-11-25] MEDS: Cyclobenzaprine 10 MG Tab PO SCH ×2 (08:34→20:16)
[2020-11-25] MEDS: cycloSPORINE Ophth Drops U/D Box of 30 EYEBOTH SCH ×2 (08:35→20:17)
[2020-11-25] MEDS: Allopurinol 300 MG Tab PO SCH (08:36)
[2020-11-25] MEDS: prednisoLONE Acetate 1% Ophth Susp 5 ML Bottle EYEBOTH SCH (20:13)
[2020-11-25] MEDS: EYE EYERT SCH (20:15)
[2020-11-25] MEDS: ROCKLATAN EYERT SCH (20:15)
[2020-11-25] MEDS: atorvaSTATin 10 MG Tab PO SCH (20:19)
[2020-11-26] MEDS: metFORMIN 1,000 MG Tab PO SCH (07:47)
[2020-11-26] MEDS: Aspirin 81 MG Tab.Chew PO SCH ×2 (07:48→08:01)
[2020-11-26] MEDS: Cyclobenzaprine 10 MG Tab PO SCH (07:48)
[2020-11-26] MEDS: Allopurinol 300 MG Tab PO SCH ×2 (07:49→08:01)
[2020-11-26] MEDS: Metoprolol Tartrate 50 MG Tab PO SCH ×2 (07:49→08:01)
--- NOTE | 2020-11-26 07:49 | PCM.DCSUM1 ---
Discharge Summary - Hospital Course Free Text/Narrative:: Patient was admitted to swing bed for IV antibiotics and rehabilitation. Patient had a cellulitis in his legs. He had his antibiotics and his cellulitis improved markedly. Because of his excruciating pain in his back his legs are very weak and is hardly able to stand up without pain. Was getting Percocet on a when necessary basis. I stopped that and started Tylenol No. 3 4 times a day disagree to get that under control. He has a ulcer on his buttocks it is healing nicely. Doing dressing changes and then keeping the pressure off. He is supposed to see neurosurgery services cellulitis and ulcer on his buttocks are healed to get surgery on his back. That's was delay in at this time. Patient's legs look good and is off antibiotics. Is mostly just the wound on the buttocks is a concern and PTOT and pain control. He'll be discharged in [place]' with is PT/OT and wound care. As soon as his wound on his back is healed neurosurgery needs to be called to get him an appointment to have a recheck. Brief History: Mr. Hernandez was admitted through the emergency department on 11/13/2020 due to severe lower back pain with radicular pain. He has been under the care of neurosurgery and has received pain injections. He was waiting for a scheduled DEXA exam to guide further therapy. He was treated as an inpatient with opioids and muscle relaxant. He was also found to have cellulitis of the right lower extremity and treated with clindamycin and ceftriaxone. His cellulitis is improving. He was also found to have a wound on his left buttocks. The wound was appropriately cleaned and dressed. Patient will be discharged from the inpatient and admitted to swing bed at this time. Patient will have DEXA scan tomorrow to guide further treatment. Continue occupational and physical therapy. Diagnosis: Stroke: No - Discharge Data Discharge Date: 11/26/20 Discharge Disposition: DC/Tfer to [facility] Condition: Good - Referral to Home Health Primary Care Physician: Elmer Tolentino MD - Discharge Diagnosis/Problem(s) (1) Decubitus ulcer SNOMED Code(s): 393514566 ICD Code: L89.90 - PRESSURE ULCER OF UNSPECIFIED SITE, UNSPECIFIED STAGE Status: Acute Current Visit: Yes (2) Cellulitis SNOMED Code(s): 906183989 ICD Code: L03.90 - CELLULITIS, UNSPECIFIED Status: Acute Current Visit: No Qualifiers: Site of cellulitis: extremity Site of cellulitis of extremity: lower extremity Laterality: unspecified laterality Qualified Code(s): L03.119 - Cellulitis of unspecified part of limb (3) Chronic radicular low back pain SNOMED Code(s): 98236747, 87202462 ICD Code: M54.16 - RADICULOPATHY, LUMBAR REGION; G89.29 - OTHER CHRONIC PAIN Status: Chronic Current Visit: No - Patient Summary/Data Consults: Consultations 11/16/20 09:39 OT Evaluation and Treatment [CONS] Routine Please Evaluate and Treat. OT Reason for Consult: Other (Type Response) This query below is only for informational purposes and is not editable. Admission Diagnosis/Problem: Back pain of lumbar region with sciatica PT Evaluation and Treatment [CONS] Routine Please Evaluate and Treat. PT Reason for Consult: Other (Type Response) This query below is only for informational purposes and is not editable. Admission Diagnosis/Problem: Back pain of lumbar region with sciatica - Patient Instructions Diet: Diabetic Diet Activity: Apply Ice Driving: Do Not Drive Showering/Bathing: May Shower Notify Provider of: Increased Pain Other/Special Instructions: 1. PT/OT. 2. Dressing changes to the ulcer on the his buttocks daily. Keep pressure off. 3. As soon as his ulcer on the buttocks has healed. [place] neurosurgery should be called to get back up and have his back operation. - Discharge Plan Prescriptions/Med Rec: Acetaminophen/Codeine [Tylenol with Codeine No.3 300MG/30MG] 1 tab PO QID #80 tablet Home Medications: Home Meds Brimonidine Tartrate/Timolol [Combigan 0.2%-0.5% Eye Drops] 1 drop EYEBOTH BID 11/13/20 [History] Vit A/Vit C/Vit E/Zinc/Copper [Preservision] 1 each PO BID 11/13/20 [History] Aspirin 81 mg PO BID tab.chew 11/16/20 [Rx] Cyclobenzaprine [Flexeril] 10 mg PO BID 11/16/20 [History] Cyclobenzaprine [Flexeril] 10 mg PO BID tablet 11/16/20 [Rx] Latanoprost [Xalatan 0.005% Ophth Soln] 0 ml EYELF BEDTIME bottle 11/16/20 [Rx] Metoprolol Tartrate [Lopressor] 50 mg PO BID tablet 11/16/20 [Rx] Netarsudil Mesylat/Latanoprost [Rocklatan 0.02%-0.005% Eye Drp] 1 drop EYERT BEDTIME 11/16/20 [Rx] Non-Formulary Medication [NF Drug] 0 each EYEBOTH BID each 11/16/20 [Rx] Sodium Chloride 0.9% [Saline Flush] 10 ml FLUSH ASDIRECTED PRN syringe 11/16/20 [Rx] allopurinoL [Zyloprim] 300 mg PO DAILY tablet 11/16/20 [Rx] atorvaSTATin [Lipitor] 10 mg PO BEDTIME tablet 11/16/20 [Rx] cycloSPORINE [Restasis] 1 each EYEBOTH BID each 11/16/20 [Rx] metFORMIN [Glucophage] 1,000 mg PO BIDMEALS tablet 11/16/20 [Rx] prednisoLONE acetate [Pred Forte 1% Ophth Susp] 0 ml EYEBOTH BEDTIME bottle 0 11/16/20 [Rx] Acetaminophen/Codeine [Tylenol with Codeine No.3 300MG/30MG] 1 tab PO QID #80 tablet 11/26/20 [Rx] Patient Handouts: Fall Prevention in Hospitals, Adult, Chronic Back Pain, Venous Thromboembolism Prevention - Discharge Summary/Plan Comment DC Time >30 min.: No - Patient Data Vitals - Most Recent: Last Vital Signs Temp 98.6 F 11/25/20 07:25 Pulse 78 11/25/20 20:16 Resp 22 H 11/25/20 07:25 BP 143/64 H 11/25/20 20:16 Pulse Ox 94 L 11/25/20 07:25 Weight - Most Recent: 255 lb 3.2 oz Lab Results - Last 24 hrs: Laboratory Results - last 24 hr 11/25/20 11/26/20 11/26/20 Range/Units 17:14 05:00 05:02 POC Glucose 108 122 H (80-116) mg/dL SARS-CoV-2 RNA ([facility]) Negative (NEGATIVE) Med Orders - Current: Current Medications Acetaminophen/Codeine Phosphate (Acetaminophen/Codeine 300-30 Mg Tab) [address] [facility] Last Admin: 11/25/20 20:21 Dose: 1 tab Documented by: Allopurinol (Allopurinol 300 Mg Tab) [address] [facility] Last Admin: 11/25/20 08:36 Dose: 300 mg Documented by: Aspirin (Aspirin 81 Mg Tab.Chew) [address] [facility] Last Admin: 11/25/20 20:16 Dose: 81 mg Documented by: Atorvastatin Calcium (Atorvastatin 10 Mg Tab) [address] [facility] Last Admin: 11/25/20 20:19 Dose: 10 mg Documented by: Cyclobenzaprine HCl (Cyclobenzaprine 10 Mg Tab) [address] [facility] Last Admin: 11/25/20 20:16 Dose: 10 mg Documented by: Cyclosporine (Cyclosporine Ophth Drops U/D Box Of 30) [address] [facility] Last Admin: 11/25/20 20:17 Dose: 1 drop Documented by: Metformin HCl (Metformin 1,000 Mg Tab) 1,[address] [facility] Last Admin: 11/25/20 17:21 Dose: 1,000 mg Documented by: Metoprolol Tartrate (Metoprolol Tartrate 50 Mg Tab) [address] [facility] Last Admin: 11/25/20 20:16 Dose: 50 mg Documented by: Combigan 0.2%-0.5% Eye Drops *Pt Own Med* [address] [facility] Last Admin: 11/25/20 20:14 Dose: 1 each Documented by: Rocklatan 0.02%-0. 005% Eye Drops *Pt Own Med* [address] [facility] Last Admin: 11/25/20 20:15 Dose: 1 each Documented by: Prednisolone Acetate (Prednisolone Acetate 1% Ophth Susp 5 Ml Bottle) [address] [facility] Last Admin: 11/25/20 20:13 Dose: 1 drop Documented by: Discontinued Medications Ceftriaxone Sodium (Ceftriaxone 2 Gm Vial) [address] [facility] Last Admin: 11/18/20 09:21 Dose: 2 gm Documented by: Clindamycin/Sodium Chloride (Clindamycin In 0.9 % Nacl 600 Mg/50 Ml Premix Bag) [address] [facility] Clindamycin/Sodium Chloride (Cleocin In Ns 600 Mg/50 Ml) 600 mg in 50 mls @ 100 mls/hr IV Q8H [facility] Last Admin: 11/19/20 01:56 Dose: 100 mls/hr Documented by: Clindamycin/Sodium Chloride (Cleocin In Ns 600 Mg/50 Ml) 600 mg in 50 mls @ 100 mls/hr IV Q8H [facility] Clindamycin/Sodium Chloride (Cleocin In Ns 600 Mg/50 Ml) 600 mg in 50 mls @ 100 mls/hr IV Q8H [facility] Stop: 11/23/20 02:29 Last Admin: 11/23/20 01:23 Dose: 100 mls/hr Documented by: Oxycodone/Acetaminophen (Acetaminophen/Oxycodone 325-5 Mg Tab) 2 tab PO Q6H PRN PRN Reason: BACK PAIN Last Admin: 11/24/20 08:20 Dose: 2 tab Documented by: Sodium Chloride (Sodium Chloride 0.9% 10 Ml Syringe) 10 ml FLUSH ASDIRECTED PRN PRN Reason: Keep Vein Open Last Admin: 11/24/20 08:15 Dose: 10 ml Documented by:
[2020-11-26 07:50] VITALS: BP 150/81; PULSE 80
[2020-11-26] MEDS: cycloSPORINE Ophth Drops U/D Box of 30 EYEBOTH SCH ×2 (07:50→08:01)
[2020-11-26] MEDS: Acetaminophen/Codeine 300-30 MG Tab PO SCH ×2 (07:53→08:00)
[2020-11-26] MEDS ORDERED: Tuberculin, PPD 5 Units/0.1 ML 1 ML MDV IDERM ONE (08:25)
== END 2020-11-26 08:55 | DRG 603 ==
LOC: FB.MS 09:00
PROVIDERS: ADMIT Student in an Organized Health Care Education/Training Program; ATTEND Family Medicine
DX: L03.115 Cellulitis of right lower limb (principal); M19.90 Unspecified osteoarthritis, unspecified site; M10.9 Gout, unspecified; M54.16 Radiculopathy, lumbar region; G89.29 Other chronic pain; E11.9 Type 2 diabetes mellitus without complications; E66.9 Obesity, unspecified; L89.329 Pressure ulcer of left buttock, unspecified stage; L89.319 Pressure ulcer of right buttock, unspecified stage; Z20.822 Contact with and (suspected) exposure to COVID-19; E79.0 Hyperuricemia without signs of inflammatory arthritis and tophaceous disease; Z94.7 Corneal transplant status; R26.2 Difficulty in walking, not elsewhere classified; I10 Essential (primary) hypertension; M54.30 Sciatica, unspecified side; L89.90 Pressure ulcer of unspecified site, unspecified stage; Z79.82 Long term (current) use of aspirin; Z79.899 Other long term (current) drug therapy; Z79.52 Long term (current) use of systemic steroids; Z98.41 Cataract extraction status, right eye; Z98.42 Cataract extraction status, left eye
CPT/HCPCS: 36415; 82947; 85025; 86140; 97110-GO; 97110-GP; 97530-GO; 97530-GP; 97542-GO; A9270-GY; J0696; J3490; U0002

== ENCOUNTER 2023-06-10 15:19 | Emergency (ER) | payer MEDICARE, BC ==
[2023-06-10] MEDS ORDERED: Sodium Chloride 0.9% 10 ML Syringe FLUSH PRN (15:26)
[2023-06-10 15:41] LABS: BASOPHILS PERCENT AUTO 0.2 % (0.3-3.8); EOSINOPHILS ABSOLUTE AUTO 0.1 x10-3/uL (0.0-0.6); EOSINOPHILS PERCENT AUTO 1.6 % (0.1-6.8); HEMATOCRIT 37.1 % (38.3-50.1); HEMOGLOBIN 12.4 g/dL (12.9-17.7); LYMPHOCYTES ABSOLUTE AUTO 0.9 x10-3/uL (0.5-4.5); LYMPHOCYTES PERCENT AUTO 11.6 % (15.8-45.3); MEAN CORPUSCULAR HEMOGLOBIN 32.7 pg (27.0-33.3); MEAN CORPUSCULAR HGB CONC 33.3 g/dL (28.7-35.3); MEAN CORPUSCULAR VOLUME 98.1 fL (80.8-98.7); MEAN PLATELET VOLUME 7.4 fL (6.7-11.0); MONOCYTES ABSOLUTE AUTO 0.7 x10-3/uL (0.0-1.2); MONOCYTES PERCENT AUTO 9.2 % (5.5-15.2); NEUTROPHILS ABSOLUTE AUTO 5.9 x10-3/uL (1.7-6.9); NEUTROPHILS PERCENT AUTO 77.5 % (40.3-71.8); PLATELET COUNT,PLT 146 x10(3)uL (117-477); RED BLOOD CELL COUNT 3.78 x10(6)uL (3.90-5.90); RED CELL DISTRIBUTION WIDTH 13.8 % (12.4-15.0); WHITE BLOOD CELL COUNT,WBC 7.7 x10-3/uL (3.2-10.1)
[2023-06-10 15:44] LABS: BLOOD UREA NITROGEN,BUN 17 mg/dL (7-18); BUN/CREATININE RATIO 15.5 (9-20); CALCIUM 8.4 mg/dL (8.6-10.2); CARBON DIOXIDE,CO2 24 mmol/L (21-32); CHLORIDE,CL 105 mmol/L (100-110); CREATININE 1.1 mg/dL (0.70-1.30); ESTIMATED GFR 69 mL/min (>60); GLUCOSE RANDOM 161 mg/dL (80-116); POTASSIUM,K 4.1 mmol/L (3.5-5.3); SODIUM,NA 142 mmol/L (135-145)
[2023-06-10 15:50] LABS: A/G RATIO 0.9; ALANINE AMINOTRANSFERASE,ALT 32 U/L (12-36); ALBUMIN 3.6 g/dL (3.2-4.6); ALKALINE PHOSPHATASE 113 IU/L (56-112); ASPARTATE AMNIOTRANSFERASE,AST 27 IU/L (5-25); BILIRUBIN TOTAL 0.8 mg/dL (0.1-1.3); PROTEIN TOTAL,TP 7.6 g/dL (6.0-8.0)
[2023-06-10 15:51] LABS: INR 1.13 (1.00-1.24); PROTHROMBIN TIME 11.6 sec (9.0-11.1); PTT,PARTIAL THROMBOPLSTIN TIME 27.6 SECONDS (24.4-33.2)
[2023-06-10 16:44] LABS: BILIRUBIN,URINE NEGATIVE (NEGATIVE); GLUCOSE,URINE NORMAL (NORMAL); KETONES,URINE 15 mg/dL (NEGATIVE); LEUKOCYTE ESTERASE,URINE NEGATIVE (NEGATIVE); NITRITE,URINE NEGATIVE (NEGATIVE); OCCULT BLOOD,URINE NEGATIVE (NEGATIVE); PROTEIN,URINE NEGATIVE (NEGATIVE); UROBILINOGEN,URINE NORMAL (NEGATIVE)
[2023-06-10 16:47] LABS: APPEARANCE,URINE CLEAR (CLEAR); BACTERIA,URINE FEW (NS); COLOR,URINE YELLOW (YELLOW); RBC,URINE NOT SEEN (0-5); SQUAMOUS EPITHELIAL CELLS,UR FEW (NS,R,O); WBC,URINE 0-5 (0-5)
[2023-06-10 17:17] LABS: INFLUENZA A NAA NEGATIVE (NEGATIVE); INFLUENZA B NAA NEGATIVE (NEGATIVE)
[2023-06-10 17:21] LABS: CORONAVIRUS COVID-19 NAA POSITIVE (NEGATIVE)
[2023-06-10 18:38] VITALS: BP 163/80; PULSE 88
== END 2023-06-10 18:52 ==
LOC: FB.ED 15:19
DX: I63.9 Cerebral infarction, unspecified (principal); I10 Essential (primary) hypertension; E78.5 Hyperlipidemia, unspecified; E78.00 Pure hypercholesterolemia, unspecified; E11.9 Type 2 diabetes mellitus without complications; E66.9 Obesity, unspecified; M19.90 Unspecified osteoarthritis, unspecified site; Z68.34 Body mass index [BMI] 34.0-34.9, adult; Z79.899 Other long term (current) drug therapy; Z79.82 Long term (current) use of aspirin; Z79.84 Long term (current) use of oral hypoglycemic drugs; Z20.822 Contact with and (suspected) exposure to COVID-19
CPT/HCPCS: 0240U; 70450; 71045; 80053; 81001; 82947; 84484; 85025; 85610; 85730; 93005; 99285

== ENCOUNTER 2023-08-06 20:00 | Inpatient (IN) | payer MEDICARE, BC ==
[2023-08-06] MEDS ORDERED: Sodium Chloride 0.9% 10 ML Syringe FLUSH PRN (20:04)
[2023-08-06 20:47] LABS: BLOOD UREA NITROGEN,BUN 21 mg/dL (7-18); BUN/CREATININE RATIO 12.4 (9-20); CALCIUM 8.8 mg/dL (8.6-10.2); CARBON DIOXIDE,CO2 17 mmol/L (21-32); CHLORIDE,CL 99 mmol/L (100-110); CREATININE 1.7 mg/dL (0.70-1.30); ESTIMATED GFR 41 mL/min (>60); GLUCOSE RANDOM 205 mg/dL (80-116); POTASSIUM,K 3.9 mmol/L (3.5-5.3); SODIUM,NA 139 mmol/L (135-145)
[2023-08-06 20:49] LABS: BASOPHILS PERCENT AUTO 0.2 % (0.3-3.8); EOSINOPHILS PERCENT AUTO 0.1 % (0.1-6.8); HEMATOCRIT 38.3 % (38.3-50.1); HEMOGLOBIN 12.7 g/dL (12.9-17.7); LYMPHOCYTES ABSOLUTE AUTO 0.8 x10-3/uL (0.5-4.5); LYMPHOCYTES PERCENT AUTO 6.4 % (15.8-45.3); MEAN CORPUSCULAR HEMOGLOBIN 32.1 pg (27.0-33.3); MEAN CORPUSCULAR VOLUME 97.2 fL (80.8-98.7); MEAN PLATELET VOLUME 8.1 fL (6.7-11.0); MONOCYTES ABSOLUTE AUTO 1.4 x10-3/uL (0.0-1.2); NEUTROPHILS ABSOLUTE AUTO 10.4 x10-3/uL (1.7-6.9); NEUTROPHILS PERCENT AUTO 82.3 % (40.3-71.8); PLATELET COUNT,PLT 213 x10(3)uL (117-477); RED BLOOD CELL COUNT 3.94 x10(6)uL (3.90-5.90); RED CELL DISTRIBUTION WIDTH 14.6 % (12.4-15.0); WHITE BLOOD CELL COUNT,WBC 12.6 x10-3/uL (3.2-10.1)
[2023-08-06 21:01] LABS: A/G RATIO 0.8; ALANINE AMINOTRANSFERASE,ALT 33 U/L (12-36); ALBUMIN 3.5 g/dL (3.2-4.6); ALKALINE PHOSPHATASE 127 IU/L (56-112); ASPARTATE AMNIOTRANSFERASE,AST 43 IU/L (5-25); BILIRUBIN TOTAL 1.2 mg/dL (0.1-1.3); PROTEIN TOTAL,TP 7.7 g/dL (6.0-8.0)
[2023-08-06 21:04] LABS: C-REACTIVE PROTEIN 7.05 mg/dL (<0.50); CREATINE KINASE,CK 1020 IU/L (60-160); TROPONIN I 110.7 pg/mL (4.0-60.3)
[2023-08-06 21:04] LABS: LACTIC ACID 8.5 mmol/L (0.4-2.0)
[2023-08-06] MEDS ORDERED: Enoxaparin 30 MG/0.3 ML Syringe SUBCUT SCH (21:15)
[2023-08-06] MEDS ORDERED: Sodium Chloride 0.9% 1,000 ML IV SCH ×2 (21:15→21:30)
[2023-08-06] MEDS: Sodium Chloride 0.9% 1,000 ML IV SCH (22:48)
[2023-08-07] MEDS: Sodium Chloride 0.9% 1,000 ML IV SCH ×2 (07:05→15:55)
[2023-08-07 07:28] LABS: BLOOD UREA NITROGEN,BUN 15 mg/dL (7-18); BUN/CREATININE RATIO 13.6 (9-20); CALCIUM 8.1 mg/dL (8.6-10.2); CARBON DIOXIDE,CO2 25 mmol/L (21-32); CHLORIDE,CL 105 mmol/L (100-110); CREATININE 1.1 mg/dL (0.70-1.30); EST CRCL DRUG DOSING (CG) 56.22 mL/min; ESTIMATED GFR 68 mL/min (>60); GLUCOSE RANDOM 137 mg/dL (80-116); POTASSIUM,K 3.5 mmol/L (3.5-5.3); SODIUM,NA 140 mmol/L (135-145)
[2023-08-07 07:34] LABS: LACTIC ACID 1.3 mmol/L (0.4-2.0)
[2023-08-07 07:37] LABS: CREATINE KINASE,CK 1286 IU/L (60-160)
[2023-08-07] MEDS: Enoxaparin 40 MG/0.4 ML Syringe SUBCUT SCH (10:26)
[2023-08-07] MEDS: Hydrochlorothiazide/Lisinopril 25-20 MG Tab PO SCH (11:47)
[2023-08-07] MEDS: Metoprolol Tartrate 50 MG Tab PO SCH ×2 (12:06→21:55)
[2023-08-07] MEDS: traMADol 50 MG Tab PO PRN (15:07)
[2023-08-07] MEDS: metFORMIN 1,000 MG Tab PO SCH (17:45)
[2023-08-07] MEDS: atorvaSTATin 40 MG Tab PO SCH (21:56)
[2023-08-08] MEDS: Sodium Chloride 0.9% 1,000 ML IV SCH ×4 (00:14→22:09)
[2023-08-08 06:42] LABS: BASOPHILS PERCENT AUTO 0.6 % (0.3-3.8); EOSINOPHILS ABSOLUTE AUTO 0.3 x10-3/uL (0.0-0.6); EOSINOPHILS PERCENT AUTO 3.7 % (0.1-6.8); HEMATOCRIT 32.7 % (38.3-50.1); HEMOGLOBIN 11.1 g/dL (12.9-17.7); LYMPHOCYTES ABSOLUTE AUTO 1.4 x10-3/uL (0.5-4.5); LYMPHOCYTES PERCENT AUTO 19.7 % (15.8-45.3); MEAN CORPUSCULAR HEMOGLOBIN 32.6 pg (27.0-33.3); MEAN CORPUSCULAR HGB CONC 33.8 g/dL (28.7-35.3); MEAN CORPUSCULAR VOLUME 96.5 fL (80.8-98.7); MONOCYTES ABSOLUTE AUTO 0.9 x10-3/uL (0.0-1.2); MONOCYTES PERCENT AUTO 13.1 % (5.5-15.2); NEUTROPHILS ABSOLUTE AUTO 4.4 x10-3/uL (1.7-6.9); NEUTROPHILS PERCENT AUTO 62.9 % (40.3-71.8); PLATELET COUNT,PLT 171 x10(3)uL (117-477); RED BLOOD CELL COUNT 3.39 x10(6)uL (3.90-5.90); RED CELL DISTRIBUTION WIDTH 14.4 % (12.4-15.0)
[2023-08-08 07:34] LABS: A/G RATIO 0.7; ALANINE AMINOTRANSFERASE,ALT 33 U/L (12-36); ALBUMIN 2.5 g/dL (3.2-4.6); ALKALINE PHOSPHATASE 97 IU/L (56-112); ASPARTATE AMNIOTRANSFERASE,AST 77 IU/L (5-25); BILIRUBIN TOTAL 0.8 mg/dL (0.1-1.3); BLOOD UREA NITROGEN,BUN 14 mg/dL (7-18); BUN/CREATININE RATIO 12.7 (9-20); CALCIUM 7.5 mg/dL (8.6-10.2); CARBON DIOXIDE,CO2 25 mmol/L (21-32); CHLORIDE,CL 104 mmol/L (100-110); CREATININE 1.1 mg/dL (0.70-1.30); EST CRCL DRUG DOSING (CG) 56.22 mL/min; ESTIMATED GFR 68 mL/min (>60); GLUCOSE RANDOM 137 mg/dL (80-116); POTASSIUM,K 3.7 mmol/L (3.5-5.3); PROTEIN TOTAL,TP 6.3 g/dL (6.0-8.0); SODIUM,NA 139 mmol/L (135-145)
[2023-08-08 07:36] LABS: CREATINE KINASE,CK 1737 IU/L (60-160)
[2023-08-08] MEDS ORDERED: POVIDONE EYELF PRN (08:48)
[2023-08-08] MEDS ORDERED: CARBOXYMETHYLCELLULOSE SODIUM EYELF PRN (08:48)
[2023-08-08] MEDS: traMADol 50 MG Tab PO PRN ×3 (08:59→22:33)
[2023-08-08] MEDS: metFORMIN 1,000 MG Tab PO SCH ×2 (08:59→18:17)
[2023-08-08] MEDS ORDERED: CYCLOSPORINE EYEBOTH SCH (09:00)
[2023-08-08] MEDS ORDERED: PREGABALIN 25 MG PO SCH (09:00)
[2023-08-08] MEDS ORDERED: Metoprolol Tartrate 50 MG Tab PO SCH (09:00)
[2023-08-08] MEDS: Aspirin 81 MG Tab.Chew PO SCH (09:53)
[2023-08-08] MEDS: Brimonidine 0.2% Ophth Soln 5 ML Bottle EYEBOTH SCH ×2 (09:53→22:13)
[2023-08-08] MEDS: Enoxaparin 40 MG/0.4 ML Syringe SUBCUT SCH (09:54)
[2023-08-08] MEDS: Metoprolol Tartrate 50 MG Tab PO SCH ×2 (09:54→22:26)
[2023-08-08] MEDS: Hydrochlorothiazide/Lisinopril 25-20 MG Tab PO SCH (09:54)
[2023-08-08] MEDS: Lutein/Minerals/Vitamin C/Vitamin E Acetate Cap PO SCH ×2 (09:55→22:22)
[2023-08-08] MEDS: Allopurinol 300 MG Tab PO SCH (09:55)
[2023-08-08] MEDS: Vitamin B Complex with Vitamin C Tab PO SCH (09:55)
[2023-08-08] MEDS: Timolol Maleate 0.5% Ophth Soln 5 ML Bottle EYEBOTH SCH ×2 (09:55→22:19)
[2023-08-08] MEDS: Dorzolamide 2% Ophth Soln 10 ML Bottle EYEBOTH SCH ×2 (09:55→22:20)
[2023-08-08] MEDS ORDERED: metFORMIN 1,000 MG Tab PO SCH (18:00)
[2023-08-08] MEDS ORDERED: atorvaSTATin 40 MG Tab PO SCH (21:00)
[2023-08-08] MEDS: CYCLOSPORINE EYEBOTH SCH (22:15)
[2023-08-08] MEDS: NETARSUDIL EYEBOTH SCH (22:16)
[2023-08-08] MEDS: LATANOPROST EYEBOTH SCH (22:16)
[2023-08-08] MEDS: prednisoLONE Acetate 1% Ophth Susp 5 ML Bottle EYEBOTH SCH (22:18)
[2023-08-08] MEDS: atorvaSTATin 40 MG Tab PO SCH (22:22)
[2023-08-08 23:58] LABS: TROPONIN I 34.1 pg/mL (4.0-60.3)
[2023-08-09 00:01] LABS: C-REACTIVE PROTEIN 10.26 mg/dL (<0.50)
[2023-08-09] MEDS ORDERED: Acetaminophen 500 MG Tab PO ONE (01:23)
[2023-08-09 02:11] LABS: BASOPHILS PERCENT AUTO 0.5 % (0.3-3.8); EOSINOPHILS ABSOLUTE AUTO 0.2 x10-3/uL (0.0-0.6); EOSINOPHILS PERCENT AUTO 2.2 % (0.1-6.8); HEMATOCRIT 31.9 % (38.3-50.1); HEMOGLOBIN 10.8 g/dL (12.9-17.7); LYMPHOCYTES PERCENT AUTO 12.7 % (15.8-45.3); MEAN CORPUSCULAR HEMOGLOBIN 32.9 pg (27.0-33.3); MEAN CORPUSCULAR VOLUME 96.9 fL (80.8-98.7); MEAN PLATELET VOLUME 7.3 fL (6.7-11.0); MONOCYTES ABSOLUTE AUTO 0.9 x10-3/uL (0.0-1.2); MONOCYTES PERCENT AUTO 11.6 % (5.5-15.2); NEUTROPHILS ABSOLUTE AUTO 5.9 x10-3/uL (1.7-6.9); PLATELET COUNT,PLT 171 x10(3)uL (117-477); RED BLOOD CELL COUNT 3.29 x10(6)uL (3.90-5.90); RED CELL DISTRIBUTION WIDTH 14.3 % (12.4-15.0); WHITE BLOOD CELL COUNT,WBC 8.1 x10-3/uL (3.2-10.1)
[2023-08-09] MEDS: Sodium Chloride 0.9% 1,000 ML IV SCH ×5 (02:42→21:52)
[2023-08-09 03:08] LABS: INFLUENZA A NAA NEGATIVE (NEGATIVE); INFLUENZA B NAA NEGATIVE (NEGATIVE); RESPIRATORY SYNCYTIAL VIR NAA NEGATIVE (NEGATIVE)
[2023-08-09 03:26] LABS: CORONAVIRUS COVID-19 NAA POSITIVE (NEGATIVE)
[2023-08-09 03:55] LABS: BILIRUBIN,URINE NEGATIVE (NEGATIVE); GLUCOSE,URINE NORMAL (NORMAL); KETONES,URINE NEGATIVE (NEGATIVE); LEUKOCYTE ESTERASE,URINE MODERATE (NEGATIVE); NITRITE,URINE NEGATIVE (NEGATIVE); OCCULT BLOOD,URINE LARGE (NEGATIVE); PROTEIN,URINE 30 mg/dL (NEGATIVE); UROBILINOGEN,URINE NORMAL (NEGATIVE)
[2023-08-09 04:01] LABS: AMORPHOUS SEDIMENT,URINE FEW; APPEARANCE,URINE SLIGHTLY CLOUDY (CLEAR); BACTERIA,URINE FEW (NS); COLOR,URINE YELLOW (YELLOW); MUCUS,URINE FEW (NS); RBC,URINE 20-30 (0-5); SQUAMOUS EPITHELIAL CELLS,UR OCCASIONAL (NS,R,O); WBC,URINE 0-5 (0-5)
[2023-08-09 06:59] LABS: BLOOD UREA NITROGEN,BUN 13 mg/dL (7-18); BUN/CREATININE RATIO 11.8 (9-20); CALCIUM 7.4 mg/dL (8.6-10.2); CARBON DIOXIDE,CO2 24 mmol/L (21-32); CHLORIDE,CL 106 mmol/L (100-110); CREATININE 1.1 mg/dL (0.70-1.30); EST CRCL DRUG DOSING (CG) 56.22 mL/min; ESTIMATED GFR 68 mL/min (>60); GLUCOSE RANDOM 148 mg/dL (80-116); POTASSIUM,K 3.7 mmol/L (3.5-5.3); SODIUM,NA 137 mmol/L (135-145)
[2023-08-09] MEDS: traMADol 50 MG Tab PO PRN ×2 (07:48→22:05)
[2023-08-09] MEDS: metFORMIN 1,000 MG Tab PO SCH ×2 (07:49→17:06)
[2023-08-09] MEDS: Aspirin 81 MG Tab.Chew PO SCH (10:00)
[2023-08-09] MEDS: CYCLOSPORINE EYEBOTH SCH ×2 (10:00→21:37)
[2023-08-09] MEDS: Brimonidine 0.2% Ophth Soln 5 ML Bottle EYEBOTH SCH ×2 (10:00→21:36)
[2023-08-09] MEDS: Enoxaparin 40 MG/0.4 ML Syringe SUBCUT SCH (10:01)
[2023-08-09] MEDS: Metoprolol Tartrate 50 MG Tab PO SCH ×2 (10:01→21:31)
[2023-08-09] MEDS: Hydrochlorothiazide/Lisinopril 25-20 MG Tab PO SCH (10:01)
[2023-08-09] MEDS: Timolol Maleate 0.5% Ophth Soln 5 ML Bottle EYEBOTH SCH ×2 (10:02→21:23)
[2023-08-09] MEDS: Lutein/Minerals/Vitamin C/Vitamin E Acetate Cap PO SCH ×2 (10:02→21:31)
[2023-08-09] MEDS: Vitamin B Complex with Vitamin C Tab PO SCH (10:02)
[2023-08-09] MEDS: Acetaminophen 325 MG Tab PO SCH ×4 (10:03→21:29)
[2023-08-09] MEDS: Dorzolamide 2% Ophth Soln 10 ML Bottle EYEBOTH SCH ×2 (10:03→21:35)
[2023-08-09] MEDS: Allopurinol 300 MG Tab PO SCH (10:04)
[2023-08-09] MEDS: ceFAZolin 2 GM Vial IVPUSH SCH (18:37)
[2023-08-09] MEDS: prednisoLONE Acetate 1% Ophth Susp 5 ML Bottle EYEBOTH SCH (21:30)
[2023-08-09] MEDS: LATANOPROST EYEBOTH SCH (21:36)
[2023-08-09] MEDS: NETARSUDIL EYEBOTH SCH (21:36)
[2023-08-10] MEDS: ceFAZolin 2 GM Vial IVPUSH SCH ×3 (01:30→17:22)
[2023-08-10] MEDS: Sodium Chloride 0.9% 1,000 ML IV SCH ×2 (06:07→16:11)
[2023-08-10] MEDS: Carboxymethylcellulose Sodium 0.5% Ophth Soln 15 ML Bottle EYEBOTH PRN (06:20)
[2023-08-10 06:26] LABS: BASOPHILS PERCENT AUTO 0.7 % (0.3-3.8); EOSINOPHILS ABSOLUTE AUTO 0.3 x10-3/uL (0.0-0.6); EOSINOPHILS PERCENT AUTO 5.3 % (0.1-6.8); HEMATOCRIT 34.8 % (38.3-50.1); HEMOGLOBIN 11.5 g/dL (12.9-17.7); LYMPHOCYTES ABSOLUTE AUTO 0.9 x10-3/uL (0.5-4.5); LYMPHOCYTES PERCENT AUTO 15.3 % (15.8-45.3); MEAN CORPUSCULAR HEMOGLOBIN 31.9 pg (27.0-33.3); MEAN CORPUSCULAR HGB CONC 33.1 g/dL (28.7-35.3); MEAN CORPUSCULAR VOLUME 96.5 fL (80.8-98.7); MEAN PLATELET VOLUME 7.7 fL (6.7-11.0); MONOCYTES ABSOLUTE AUTO 0.6 x10-3/uL (0.0-1.2); MONOCYTES PERCENT AUTO 10.8 % (5.5-15.2); NEUTROPHILS ABSOLUTE AUTO 3.9 x10-3/uL (1.7-6.9); NEUTROPHILS PERCENT AUTO 67.9 % (40.3-71.8); PLATELET COUNT,PLT 151 x10(3)uL (117-477); RED CELL DISTRIBUTION WIDTH 13.9 % (12.4-15.0); WHITE BLOOD CELL COUNT,WBC 5.7 x10-3/uL (3.2-10.1)
[2023-08-10 07:12] LABS: A/G RATIO 0.7; ALANINE AMINOTRANSFERASE,ALT 60 U/L (12-36); ALBUMIN 2.5 g/dL (3.2-4.6); ALKALINE PHOSPHATASE 116 IU/L (56-112); BILIRUBIN TOTAL 0.7 mg/dL (0.1-1.3); BLOOD UREA NITROGEN,BUN 11 mg/dL (7-18); CALCIUM 7.4 mg/dL (8.6-10.2); CARBON DIOXIDE,CO2 24 mmol/L (21-32); CHLORIDE,CL 106 mmol/L (100-110); EST CRCL DRUG DOSING (CG) 61.85 mL/min; ESTIMATED GFR 77 mL/min (>60); GLUCOSE RANDOM 125 mg/dL (80-116); POTASSIUM,K 3.8 mmol/L (3.5-5.3); PROTEIN TOTAL,TP 6.2 g/dL (6.0-8.0); SODIUM,NA 138 mmol/L (135-145)
[2023-08-10 07:38] LABS: ASPARTATE AMNIOTRANSFERASE,AST 232 IU/L (5-25)
[2023-08-10 07:46] LABS: TROPONIN I 20.1 pg/mL (4.0-60.3)
[2023-08-10 07:50] LABS: C-REACTIVE PROTEIN 13.16 mg/dL (<0.50)
[2023-08-10 08:06] LABS: CREATINE KINASE,CK 5117 IU/L (60-160)
[2023-08-10] MEDS: metFORMIN 1,000 MG Tab PO SCH ×2 (09:18→17:19)
[2023-08-10] MEDS: Brimonidine 0.2% Ophth Soln 5 ML Bottle EYEBOTH SCH ×2 (09:19→20:51)
[2023-08-10] MEDS: Aspirin 81 MG Tab.Chew PO SCH (09:21)
[2023-08-10] MEDS: Metoprolol Tartrate 50 MG Tab PO SCH ×2 (09:21→20:58)
[2023-08-10] MEDS: Allopurinol 300 MG Tab PO SCH (09:21)
[2023-08-10] MEDS: Lutein/Minerals/Vitamin C/Vitamin E Acetate Cap PO SCH ×2 (09:22→20:57)
[2023-08-10] MEDS: Acetaminophen 325 MG Tab PO SCH ×4 (09:22→20:57)
[2023-08-10] MEDS: Hydrochlorothiazide/Lisinopril 25-20 MG Tab PO SCH (09:22)
[2023-08-10] MEDS: Enoxaparin 40 MG/0.4 ML Syringe SUBCUT SCH (09:22)
[2023-08-10] MEDS: Vitamin B Complex with Vitamin C Tab PO SCH (09:22)
[2023-08-10] MEDS: CYCLOSPORINE EYEBOTH SCH ×2 (09:24→20:51)
[2023-08-10] MEDS: Timolol Maleate 0.5% Ophth Soln 5 ML Bottle EYEBOTH SCH ×2 (09:30→20:50)
[2023-08-10] MEDS: Dorzolamide 2% Ophth Soln 10 ML Bottle EYEBOTH SCH ×2 (09:37→20:51)
[2023-08-10] MEDS ORDERED: Loperamide 2 MG Cap PO PRN (18:38)
[2023-08-10] MEDS: Saccharomyces Boulardii (Probiotic) 250 MG Cap PO SCH (19:29)
[2023-08-10] MEDS: prednisoLONE Acetate 1% Ophth Susp 5 ML Bottle EYEBOTH SCH (20:51)
[2023-08-10] MEDS: LATANOPROST EYEBOTH SCH (20:51)
[2023-08-10] MEDS: NETARSUDIL EYEBOTH SCH (20:51)
[2023-08-11] MEDS: Carboxymethylcellulose Sodium 0.5% Ophth Soln 15 ML Bottle EYEBOTH PRN (01:26)
[2023-08-11] MEDS: Sodium Chloride 0.9% 1,000 ML IV SCH ×3 (01:27→17:39)
[2023-08-11] MEDS: ceFAZolin 2 GM Vial IVPUSH SCH ×2 (01:47→15:38)
[2023-08-11] MEDS: traMADol 50 MG Tab PO PRN ×2 (06:01→13:37)
[2023-08-11] MEDS: Brimonidine 0.2% Ophth Soln 5 ML Bottle EYEBOTH SCH ×2 (08:52→21:14)
[2023-08-11] MEDS: Saccharomyces Boulardii (Probiotic) 250 MG Cap PO SCH (08:53)
[2023-08-11] MEDS: metFORMIN 1,000 MG Tab PO SCH ×2 (08:54→17:45)
[2023-08-11] MEDS: Aspirin 81 MG Tab.Chew PO SCH (08:55)
[2023-08-11] MEDS: CYCLOSPORINE EYEBOTH SCH ×2 (08:56→21:15)
[2023-08-11] MEDS: Lutein/Minerals/Vitamin C/Vitamin E Acetate Cap PO SCH ×2 (08:58→21:16)
[2023-08-11] MEDS: Vitamin B Complex with Vitamin C Tab PO SCH (08:58)
[2023-08-11] MEDS: Timolol Maleate 0.5% Ophth Soln 5 ML Bottle EYEBOTH SCH ×2 (08:58→21:14)
[2023-08-11] MEDS: Enoxaparin 40 MG/0.4 ML Syringe SUBCUT SCH (08:58)
[2023-08-11] MEDS: Allopurinol 300 MG Tab PO SCH (08:59)
[2023-08-11] MEDS: Metoprolol Tartrate 50 MG Tab PO SCH ×2 (09:01→21:15)
[2023-08-11] MEDS: Dorzolamide 2% Ophth Soln 10 ML Bottle EYEBOTH SCH ×2 (09:01→21:13)
[2023-08-11] MEDS: Hydrochlorothiazide/Lisinopril 25-20 MG Tab PO SCH (09:01)
[2023-08-11] MEDS: Acetaminophen 325 MG Tab PO SCH ×4 (09:01→21:16)
[2023-08-11 09:17] LABS: BLOOD UREA NITROGEN,BUN 9 mg/dL (7-18); CALCIUM 7.5 mg/dL (8.6-10.2); CARBON DIOXIDE,CO2 23 mmol/L (21-32); CHLORIDE,CL 108 mmol/L (100-110); CREATININE 0.9 mg/dL (0.70-1.30); EST CRCL DRUG DOSING (CG) 68.72 mL/min; ESTIMATED GFR 87 mL/min (>60); GLUCOSE RANDOM 121 mg/dL (80-116); POTASSIUM,K 3.7 mmol/L (3.5-5.3); SODIUM,NA 143 mmol/L (135-145)
[2023-08-11 12:11] LABS: A/G RATIO 0.7; ALANINE AMINOTRANSFERASE,ALT 68 U/L (12-36); ALBUMIN 2.4 g/dL (3.2-4.6); ALKALINE PHOSPHATASE 123 IU/L (56-112); BILIRUBIN TOTAL 0.4 mg/dL (0.1-1.3)
[2023-08-11 12:47] LABS: ASPARTATE AMNIOTRANSFERASE,AST 207 IU/L (5-25); CREATINE KINASE,CK 2833 IU/L (60-160)
[2023-08-11] MEDS: LATANOPROST EYEBOTH SCH (21:14)
[2023-08-11] MEDS: NETARSUDIL EYEBOTH SCH (21:14)
[2023-08-11] MEDS: prednisoLONE Acetate 1% Ophth Susp 5 ML Bottle EYEBOTH SCH (21:15)
[2023-08-12] MEDS: Sodium Chloride 0.9% 1,000 ML IV SCH (01:00)
[2023-08-12] MEDS: traMADol 50 MG Tab PO PRN (05:24)
[2023-08-12 06:33] LABS: BASOPHILS PERCENT AUTO 0.5 % (0.3-3.8); EOSINOPHILS ABSOLUTE AUTO 0.3 x10-3/uL (0.0-0.6); EOSINOPHILS PERCENT AUTO 5.8 % (0.1-6.8); HEMOGLOBIN 10.4 g/dL (12.9-17.7); LYMPHOCYTES ABSOLUTE AUTO 0.9 x10-3/uL (0.5-4.5); LYMPHOCYTES PERCENT AUTO 17.1 % (15.8-45.3); MEAN CORPUSCULAR HEMOGLOBIN 32.5 pg (27.0-33.3); MEAN CORPUSCULAR HGB CONC 33.7 g/dL (28.7-35.3); MEAN CORPUSCULAR VOLUME 96.4 fL (80.8-98.7); MEAN PLATELET VOLUME 6.7 fL (6.7-11.0); MONOCYTES ABSOLUTE AUTO 0.6 x10-3/uL (0.0-1.2); MONOCYTES PERCENT AUTO 10.5 % (5.5-15.2); NEUTROPHILS ABSOLUTE AUTO 3.6 x10-3/uL (1.7-6.9); NEUTROPHILS PERCENT AUTO 66.1 % (40.3-71.8); PLATELET COUNT,PLT 223 x10(3)uL (117-477); RED BLOOD CELL COUNT 3.21 x10(6)uL (3.90-5.90); WHITE BLOOD CELL COUNT,WBC 5.5 x10-3/uL (3.2-10.1)
[2023-08-12 06:51] LABS: A/G RATIO 0.7; ALANINE AMINOTRANSFERASE,ALT 56 U/L (12-36); ALBUMIN 2.4 g/dL (3.2-4.6); ALKALINE PHOSPHATASE 133 IU/L (56-112); BILIRUBIN TOTAL 0.4 mg/dL (0.1-1.3); BLOOD UREA NITROGEN,BUN 10 mg/dL (7-18); CALCIUM 7.5 mg/dL (8.6-10.2); CARBON DIOXIDE,CO2 22 mmol/L (21-32); CHLORIDE,CL 108 mmol/L (100-110); EST CRCL DRUG DOSING (CG) 61.85 mL/min; ESTIMATED GFR 77 mL/min (>60); GLUCOSE RANDOM 117 mg/dL (80-116); POTASSIUM,K 3.9 mmol/L (3.5-5.3); PROTEIN TOTAL,TP 6.1 g/dL (6.0-8.0); SODIUM,NA 142 mmol/L (135-145)
[2023-08-12 07:16] LABS: ASPARTATE AMNIOTRANSFERASE,AST 167 IU/L (5-25); CREATINE KINASE,CK 1347 IU/L (60-160)
[2023-08-12] MEDS: Saccharomyces Boulardii (Probiotic) 250 MG Cap PO SCH (08:16)
[2023-08-12] MEDS: metFORMIN 1,000 MG Tab PO SCH (08:16)
[2023-08-12] MEDS: Aspirin 81 MG Tab.Chew PO SCH (08:16)
[2023-08-12] MEDS: Hydrochlorothiazide/Lisinopril 25-20 MG Tab PO SCH (08:16)
[2023-08-12] MEDS: Enoxaparin 40 MG/0.4 ML Syringe SUBCUT SCH (08:16)
[2023-08-12] MEDS: Metoprolol Tartrate 50 MG Tab PO SCH (08:17)
[2023-08-12] MEDS: Vitamin B Complex with Vitamin C Tab PO SCH (08:17)
[2023-08-12] MEDS: Allopurinol 300 MG Tab PO SCH (08:17)
[2023-08-12] MEDS: Acetaminophen 325 MG Tab PO SCH (08:17)
[2023-08-12] MEDS: Lutein/Minerals/Vitamin C/Vitamin E Acetate Cap PO SCH (08:17)
[2023-08-12] MEDS: Brimonidine 0.2% Ophth Soln 5 ML Bottle EYEBOTH SCH (08:18)
[2023-08-12] MEDS: CYCLOSPORINE EYEBOTH SCH (08:21)
[2023-08-12] MEDS: Timolol Maleate 0.5% Ophth Soln 5 ML Bottle EYEBOTH SCH (08:21)
[2023-08-12 08:22] VITALS: BP 126/82; PULSE 76
[2023-08-12] MEDS: Dorzolamide 2% Ophth Soln 10 ML Bottle EYEBOTH SCH (08:22)
== END 2023-08-12 10:40 | disposition home or self-care (01) | DRG 557 ==
LOC: FB.ED 20:00 → FB.MS 21:14
PROVIDERS: ADMIT Family Medicine; ATTEND Family Medicine
DX: M62.82 Rhabdomyolysis (principal); U07.1 COVID-19; N17.9 Acute kidney failure, unspecified; F05 Delirium due to known physiological condition; W18.30XA Fall on same level, unspecified, initial encounter; S40.011A Contusion of right shoulder, initial encounter; R74.8 Abnormal levels of other serum enzymes; R94.31 Abnormal electrocardiogram [ECG] [EKG]; G89.29 Other chronic pain; M54.9 Dorsalgia, unspecified; R79.89 Other specified abnormal findings of blood chemistry; E11.42 Type 2 diabetes mellitus with diabetic polyneuropathy; M79.2 Neuralgia and neuritis, unspecified; S86.302A Unspecified injury of muscle(s) and tendon(s) of peroneal muscle group at lower leg level, left leg, initial encounter; E78.00 Pure hypercholesterolemia, unspecified; Z66 Do not resuscitate; R31.29 Other microscopic hematuria; S96.912A Strain of unspecified muscle and tendon at ankle and foot level, left foot, initial encounter; M19.90 Unspecified osteoarthritis, unspecified site; M10.9 Gout, unspecified; I10 Essential (primary) hypertension; M60.9 Myositis, unspecified; Z96.659 Presence of unspecified artificial knee joint; E11.9 Type 2 diabetes mellitus without complications; E66.9 Obesity, unspecified; Z86.16 Personal history of COVID-19; Z79.899 Other long term (current) drug therapy; Z86.73 Personal history of transient ischemic attack (TIA), and cerebral infarction without residual deficits; Z98.42 Cataract extraction status, left eye; Z98.41 Cataract extraction status, right eye; Y92.091 Bathroom in other non-institutional residence as the place of occurrence of the external cause; Z94.7 Corneal transplant status; Z68.35 Body mass index [BMI] 35.0-35.9, adult; Z79.84 Long term (current) use of oral hypoglycemic drugs; Z79.82 Long term (current) use of aspirin
CPT/HCPCS: 0241U; 36415; 51702; 71045; 71046; 72170; 73030-RT; 73610-LT; 73700-LT; 80048; 80053; 81001; 82550; 83605; 83615; 84484; 85025; 85379; 86140; 87040; 93005; 93010; 93970; 97116-GP; 97161-GP; 97165-GO; 97530-GO; 97530-GP; 97535-GO; 99285; A9270-GY; J0690; J1650; J7030